=== PATIENT | male | born 1940 | race Caucasian/White ===

== ENCOUNTER 2017-08-05 09:04 | Inpatient (IN) | payer MEDICARE, BC, SELFPAY ==
[2017-08-05] VITALS (10 sets, daily range): BP systolic 120–146; BP diastolic 70–86; PULSE 96–121; RESP 15–36; TEMP 36.4–37.1; O2SAT 93–97; BMI 27.8; BMI 27.0; BMI 27.1
--- NOTE | 2017-08-05 09:19 | EKG12_ITS ---
Test Reason : WOUND Blood Pressure : / mmHG Vent. Rate : 099 BPM Atrial Rate : 099 BPM P-R Int : 144 ms QRS Dur : 084 ms QT Int : 382 ms P-R-T Axes : 018 022 079 degrees QTc Int : 490 ms Sinus rhythm with Premature atrial complexes Nonspecific ST and T wave abnormality Abnormal ECG Confirmed by TRENT CANAS ([id number]), purchase request editor LV MORELAND ([id number]) on 08/15/2017 6:18:43 PM Referred By: KHADIJAH Confirmed By:TRENT CANAS
--- NOTE | 2017-08-05 09:19 | RAD_ITS ---
STUDY: X-RAY CHEST REASON FOR EXAM: Male, 77 years old. Swelling and redness of both lower extremities. TECHNIQUE: Single AP portable view of the chest. COMPARISON: Comparison is made with prior study dated February 18, 2014. FINDINGS: Limited inspiratory effort. Small right pleural effusion with underlying infiltration and/or atelectasis. Mild degree of increased markings at the left lung base suggestive of left basilar atelectasis. Follow-up is recommended. Normal size heart. Normal mediastinum and radha. Normal visualized pulmonary arteries. There is atherosclerotic calcification of the aortic arch with tortuosity. There are diffuse degenerative changes of the visualized thoracic spine. The vertebrae have a dense appearance. Metastatic disease should be ruled out. There is degenerative osteoarthritis of the bilateral shoulders. There is no demonstrated abnormality of the visualized soft tissue structures of the upper abdomen. RAD/Chest 1 View (Portable) IMPRESSION: Increased markings at both lung bases worse on the right side with a small right pleural effusion. Electronically Signed: Juan Koroma MD at 10:00 EDT Tel [phone], Service support ,
[2017-08-05 09:57] LABS: Absolute Lymphocyte Count 0.69 X10^3/ul (0.83-4.51); Absolute Neutrophil Count 4.5 X10^3/uL (2.0-7.7); Basophil# 0.01 X10^3/uL; Basophil% 0.2 % (0-1); Eosinophil# 0.01 X10^3/uL; Eosinophils% 0.2 % (0-5); Hematocrit 32.9 % (40-54); Hemoglobin 10.1 g/dl (13.0-16.5); Lymphocyte # 0.69 X10^3/ul (4.0); Lymphocyte % 12.3 % (19-41); Mean Corp Hgb Conc 30.7 g/gl (32-36); Mean Corpuscular Hgb 27.7 pg (27.0-32.0); Mean Corpuscular Volume 90.4 fL (80-94); Mean Platelet Vol. 8.5 fl (6.2-12.0); Monocyte# 0.38 X10^3/uL; Monocyte% 6.7 % (0-10); Neutrophil # 4.54 X10^3/uL (2.7-7.7); Neutrophil % 80.6 % (47-70); Platelet Count 270 K/mm3 (150-450); RBC Distribution Width CV 17.9 % (11.6-14.6); RBC Distribution Width SD 60.4 fl (35.1-43.9); Red Blood Count 3.64 M/mm3 (4.6-6.2); White Blood Count 5.6 K/mm3 (4.4-11.0)
[2017-08-05 10:01] LABS: POSITIVE COUNT NO; POSITIVE DIFFERENTIAL NO; POSITIVE MORPHOLOGY NO
[2017-08-05 10:17] LABS: ALB/GLOB Ratio 0.8 RATIO (0.9-2.4); AST(SGOT) 56 U/L (15-37); Alanine Aminotransfer ALT/SGPT 9 U/L (16-61); Albumin, Serum 2.9 g/dL (3.2-5.0); Alkaline Phosphatase 639 U/L (45-117); Anion Gap 10 (5-15); BUN 10 mg/dL (7-18); BUN/Creat Ratio 13.9 RATIO (10-20); Calcium,Total 8.5 mg/dL (8.5-10.1); Chloride 105 mmol/L (98-107); Creatinine, Serum 0.72 mg/dL (0.70-1.30); EST Glomerular Filtration Rate 113 mL/min (>60); Est Glom Filt Rate - Afr Amer 136 mL/min (>60); Globulin 3.8 g/dL (2.2-4.2); Glucose 79 mg/dL (74-106); Potassium 3.9 mmol/L (3.5-5.1); Protein, Total 6.7 g/dL (6.4-8.2); Sodium Level 137 mmol/L (136-145)
[2017-08-05 10:18] LABS: Lactic Acid 1.4 mmol/L (0.4-2.0)
[2017-08-05 10:25] LABS: BNP,B-Type NATRIURETIC PEPTIDE 432.2 pg/mL (0-100)
--- NOTE | 2017-08-05 10:38 | ED.VISSUMM ---
- ER Visit Summary Date of Service: 08/05/17 Chief Complaint: [Swelling in the legs] History of Present Illness: The patient is a 77 M [presents to the emergency department with complaint of swelling in both legs that he has had for over 6 months. Patient has not seen a primary care physician in some time as his last primary care physician retired. Patient has a history of coronary artery disease with prior history of prostate cancer. Patient noticed seeping from his legs and is been going on for several months. Patient denies any chest pain. He denies significant dyspnea. He denies any fevers. Patient denies recent travel or surgery.] Physical Examination: [HEENT-PERRLA, EOMI. Cranial nerves II through XII grossly intact. TMs clear. Mucous membranes moist. No adenopathy. Cardiovascular-regular rate and rhythm with a little [id number] because 2 out of 6 ejection murmur and occasional ectopy. Lungs-diminished breath sounds in bases with rales noted a third of the way up lung bilaterally. No accessory muscle use or retractions. Abdomen-normoactive bowel sounds, soft, nontender, no rebound or rigidity, no peritoneal signs. Extremities-intact ?4, normal range of motion, normal pulses, atraumatic]. Patient has +3 edema both lower extremities from below the knee to the feet. Patient has weeping of serous fluid from both lower extremities. Test Results: [EKG obtained on arrival showed a sinus rhythm with ventricular rate of 99 bpm with PACs and nonspecific ST changes. CBC with differential showed white count of 5.6, hemoglobin 10, hematocrit 33, platelets 270. Chemistries unremarkable. Troponin was less than 0.015. BNP was 432. Chest x-ray obtained showed small right pleural effusion with increased markings as well as dense appearing vertebrae and metastases should be ruled out.] Emergency Department Course and Treatment: [Patient received Lasix 40 mg IV] Treatment Plan: [Admit] Disposition: [Admit CHF] Impression: [CHF-new onset Leg edema Right pleural effusion] This note was generated with [employer] dictation software. It may contain incorrect words, spelling, and punctuation that were not noted in review of the chart prior to signing ED Disposition - Plan for ED Patient: Chief Complaint: Wound Referrals: Care Physician,No Primary [Primary Care Provider] -
--- NOTE | 2017-08-05 10:42 | ED.DCSUM_ITS ---
- ER Visit Summary Date of Service: 08/05/17 Chief Complaint: [Swelling in the legs] History of Present Illness: The patient is a 77 M [presents to the emergency department with complaint of swelling in both legs that he has had for over 6 months. Patient has not seen a primary care physician in some time as his last primary care physician retired. Patient has a history of coronary artery disease with prior history of prostate cancer. Patient noticed seeping from his legs and is been going on for several months. Patient denies any chest pain. He denies significant dyspnea. He denies any fevers. Patient denies recent travel or surgery.] Physical Examination: [HEENT-PERRLA, EOMI. Cranial nerves II through XII grossly intact. TMs clear. Mucous membranes moist. No adenopathy. Cardiovascular-regular rate and rhythm with a little [id number] because 2 out of 6 ejection murmur and occasional ectopy. Lungs-diminished breath sounds in bases with rales noted a third of the way up lung bilaterally. No accessory muscle use or retractions. Abdomen-normoactive bowel sounds, soft, nontender, no rebound or rigidity, no peritoneal signs. Extremities-intact ?4, normal range of motion, normal pulses, atraumatic]. Patient has +3 edema both lower extremities from below the knee to the feet. Patient has weeping of serous fluid from both lower extremities. Test Results: [EKG obtained on arrival showed a sinus rhythm with ventricular rate of 99 bpm with PACs and nonspecific ST changes. CBC with differential showed white count of 5.6, hemoglobin 10, hematocrit 33, platelets 270. Chemistries unremarkable. Troponin was less than 0.015. BNP was 432. Chest x- ray obtained showed small right pleural effusion with increased markings as well as dense appearing vertebrae and metastases should be ruled out.] Emergency Department Course and Treatment: [Patient received Lasix 40 mg IV] Treatment Plan: [Admit] Disposition: [Admit CHF] Impression: [CHF-new onset Leg edema Right pleural effusion] This note was generated with [employer] dictation software. It may contain incorrect words, spelling, and punctuation that were not noted in review of the chart prior to signing ED Disposition - Plan for ED Patient: Chief Complaint: Wound Referrals: Care Physician,No Primary [Primary Care Provider] -
--- NOTE | 2017-08-05 10:44 | ED.RN ---
PHARMACY CONTACTED FOR LASIX
[2017-08-05 10:45] LABS: Bacteria 0 SEEN /hpf (None Seen)
[2017-08-05 10:49] LABS: Color, Urine Yellow (Yellow); Glucose, Dipstick Normal (Normal); Leukocyte Esterase-Dipstick Negative /ul (Negative); Nitrite-Dipstick Negative (Negative); Occult Blood-Urine Negative /ul (Negative); Protein-Dipstick 15 mg/dl (Negative); Urine Bilirubin Dipstick Negative (Negative); Urine Clarity Clear (Clear); Urine Urobilinogen 4 mg/dl (Normal); Urine pH 6.5 (5.0 - 8.0)
[2017-08-05] MEDS: Furosemide 40 MG/4 ML Vial IV ×2 (10:51→17:18)
[2017-08-05 10:58] LABS: Ketone-Dipstick 150 mg/dl (Negative)
[2017-08-05 10:59] LABS: Mucous, Urine RARE /hpf (<or=2+); Squamous Epithelial Cells - UA 0-5 SEEN /hpf (0-5)
[2017-08-05 11:04] LABS: Red Blood Cells-Urine 0-5 SEEN /hpf (0-5); White Blood Cells 0-5 SEEN /hpf (0-5)
[2017-08-05 11:05] LABS: Hyaline Cast 0-5 SEEN /lpf (0-5)
--- NOTE | 2017-08-05 11:08 | DT_ITS ---
This patient was seen during an EMR downtime August 08, 2017 - August 15, 2017. This patient may have a combination of paper and electronic documentation or all paper documentation. All documentation is viewable within the e-chart portion of [facility] for each patient visit.
--- NOTE | 2017-08-05 11:09 | NURSING ---
DR CLIFFORD CARRINGTON
--- NOTE | 2017-08-05 11:10 | ECHOD_ITS ---
Reason For Study: CHF Procedure This was a 2D Doppler, Color Flow transthoracic echocardiogram. Exam performed portable in patient room. Left Ventricle Normal size and thickness. The estimated ejection fraction is 25 %. Stage 1 diastolic dysfunction. There is severe global hypokinesis of the left ventricle. Right Ventricle Mildly dilated right ventricle. Normal systolic function. Atria Normal left atrium. Normal right atrium. Normal atrial septum. Mitral Valve The mitral valve is structurally normal. No prolapse or stenosis seen. Trivial mitral valve insufficiency. Tricuspid Valve Normal tricuspid valve. Trivial tricuspid valve insufficiency. Right ventricular systolic pressure estimated to be 37 mmHg. Mild pulmonary hypertension. Aortic Valve Trisinus/trileaflet aortic valve. Mild diffuse aortic valve thickening. Trivial aortic valve insufficiency. Pulmonic Valve Normal pulmonic valve. Great Vessels Normal aortic root. Mild atherosclerosis of the aortic arch. Normal inferior vena cava. Inferior vena cava collapse with sniff. Pericardium/Pleural No pericardial effusion. MMode/2D Measurements & Calculations LVIDd: 4.6 cm IVSd: 1.1 cm Ao root diam: 3.8 cm LVIDs: 3.9 cm LVPWd: 1.1 cm LA dimension: 4.1 cm RVDd: 3.9 cm FS: 15.7 % LAV(MOD-bp): 63.1 ml LVAd ap4: 47.2 cm2 SV(MOD-sp4): 68.3 ml LAV(MOD-bp) Indexed: 29.3 ml/m2 EDV(MOD-sp4): 186.6 ml LAV(MOD-sp2): 55.8 ml EDV(sp4-el): 197.0 ml LAV(MOD-sp4): 55.0 ml LVAs ap4: 34.3 cm2 ESV(MOD-sp4): 118.4 ml ESV(sp4-el): 115.6 ml EF(MOD-sp4): 36.6 % EF(sp4-el): 41.3 % SV(sp4-el): 81.4 ml LA A4 area: 20.3 cm2 RA A4 area: 17.7 cm2 Doppler Measurements & Calculations MV E max edilson: 64.2 cm/sec Lat Peak E' Edilson: 8.1 cm/sec Med Peak E' Edilson: 3.3 cm/sec E/E' lat: 8.0 E/E' med: 19.5 Ao V2 max: 125.0 cm/sec AI max edilson: 323.4 cm/sec LV V1 max: 86.1 cm/sec Ao max P.3 mmHg AI max P.8 mmHg LV V1 max P.0 mmHg AI dec slope: 218.2 cm/sec2 AI P1/2t: 434.1 msec PA V2 max: 85.5 cm/sec TR max edilson: 283.0 cm/sec TR max P.0 mmHg Interpretation Summary The estimated ejection fraction is 25 %. Stage 1 diastolic dysfunction. There is severe global hypokinesis of the left ventricle. Mildly dilated right ventricle. Trivial mitral valve insufficiency. Trivial tricuspid valve insufficiency. Right ventricular systolic pressure estimated to be 37 mmHg. Mild pulmonary hypertension. Trivial aortic valve insufficiency. There is no comparison study available. Ordering Physician: Unique Rosales Performed By: Kendra Pérez, RODERICK, RVT
--- NOTE | 2017-08-05 11:14 | NURSING ---
126 ACUTE EXAC OF CHF CHARISSA/CLIFFORD
[2017-08-05 11:53] LABS: Thyroid Stim Hormone (TSH) 1.08 uIU/mL (0.358-3.74)
--- NOTE | 2017-08-05 13:03 | HP.PCM_ITS ---
Problem List (1) Benign essential hypertension Status: Chronic (2) History of allergy Status: Chronic History of Present Illness Date of Admission: 08/05/17 Chief Complaint: Bilateral leg edema The patient is a 77 year old M with past medical history of coronary artery disease status post myocardial infarction in 2013,history of cancer status post radiation therapy who presented to the emergency room due to leg edema for about 6 months with right more than left. He has also now noted seepage from the legs. He reports no dyspnea, chest pain, fever chills or cough. Chest x- ray done in the emergency room did show increased markings at both lung bases worse on the right side with a small right pleural effusion. His BNP is mildly elevated at 432. Past Medical History Past Medical History (Chronic Problems): Chronic Problems History of allergy (Chronic) Benign essential hypertension (Chronic) Allergies No Known Allergies Allergy (Verified 08/05/17 09:07) Home Medications: Ambulatory Orders Medication Instructions Recorded Ticagrelor [Brilinta] 90 mg PO BID 08/05/17 Smoking Status: Never smoker VTE Information - Inpt Only VTE Present on Admission: No VTE Mechan Device Prophylaxis: None VTE Pharm Prophylaxis ordered?: Yes - Physical Exam General: Alert, Oriented x3 Oral: Moist Mucosa Neck: No JVD Lungs: Rales Cardiovascular: Regular rate, Normal S1, Normal S2 Abdomen: Bowel Sounds Present, Soft, Non Tender, Non-Distended Extremities: Edema Skin: Excoriated Neurological: Cranial nerves II-XII grossly intact, Motor Exam 5/5 strength throughout Psych/Mental Status: Normal Affect Vital Signs Temp Pulse Resp BP Pulse Ox 98.0 F 96 16 138/82 H 96 08/05/17 11:40 08/05/17 11:40 08/05/17 11:40 08/05/17 11:40 08/05/17 11:40 Oxygen Delivery Method Room Air Weight: 93 kg Body Mass Index (BMI) 27.0 Laboratory Tests Past 24 Hrs 08/05/17 12:30 Troponin I Pending Assessment/Plan 1. Acute congestive heart failure; the patient has been started on Lasix and we will obtain an echocardiogram to evaluate his left ventricular function. Fluid restriction, daily weights and fluid input and output will be monitored. 2. Peripheral edema with right more than left; likely due to #1 but we will obtain Doppler ultrasound to rule out DVT. 3. Coronary artery disease status post myocardial infarction in 2013, the patient is not currently on any cardioprotective medications other than Brilinta. We will place him on beta-blockers, MAO inhibitor, aspirin and statin. 4. DVT prophylaxis with Lovenox. Code Visit Inpatient E&M: 25579 Init Hosp L2
[2017-08-05] MEDS: TICAGRELOR 90 MG TABLET PO (21:07)
[2017-08-06] VITALS (11 sets, daily range): BP systolic 99–135; BP diastolic 54–72; PULSE 89–107; RESP 16–32; TEMP 36.8–37; O2SAT 92–94
[2017-08-06 06:31] LABS: Hematocrit 29.4 % (40-54); Hemoglobin 9.1 g/dl (13.0-16.5); Mean Corpuscular Hgb 27.7 pg (27.0-32.0); Mean Corpuscular Volume 89.4 fL (80-94); Mean Platelet Vol. 8.2 fl (6.2-12.0); Platelet Count 259 K/mm3 (150-450); RBC Distribution Width CV 17.6 % (11.6-14.6); RBC Distribution Width SD 58.2 fl (35.1-43.9); Red Blood Count 3.29 M/mm3 (4.6-6.2); White Blood Count 5.2 K/mm3 (4.4-11.0)
[2017-08-06 06:32] LABS: Scan Indicated on CBC? Y/N NO
[2017-08-06 06:45] LABS: BUN 11 mg/dL (7-18); Creatinine, Serum 0.65 mg/dL (0.70-1.30); EST Glomerular Filtration Rate 127 mL/min (>60); Estimated Creatinine Clearance 69.91 ml/min; Glucose 86 mg/dL (74-106)
[2017-08-06 06:46] LABS: Anion Gap 11 (5-15); Calcium,Total 8.1 mg/dL (8.5-10.1); Chloride 102 mmol/L (98-107); Est Glom Filt Rate - Afr Amer 154 mL/min (>60); Sodium Level 138 mmol/L (136-145)
[2017-08-06] MEDS: Furosemide 40 MG/4 ML Vial IV ×2 (08:55→17:12)
[2017-08-06] MEDS: Aspirin 81 MG TAB.CHEW PO (08:55)
[2017-08-06] MEDS: TICAGRELOR 90 MG TABLET PO ×2 (08:55→21:00)
[2017-08-06] MEDS: Enoxaparin 40 MG/0.4 ML Syringe SC (08:56)
[2017-08-06] MEDS: Carvedilol 3.125 MG TABLET PO ×2 (09:01→21:00)
--- NOTE | 2017-08-06 12:38 | CASEMGMT ---
Face to Face with patient for initial transition planning/care coordination assessment. MABLE CONSTANTINO introduced self and role at [facility], pt voices understanding and consents to assessment at this time. Pt is sitting up in bed in no distress at this time. Pt is A/O x4 at this time and answers all questions appropriately at this time. Care providers, pharmacy, and demographics verified. See attached link. Pt voices no further concerns/needs at this time. Advised pt to ask for CM if any further questions/concerns/needs arise, voices understanding. Pt was provided with local PCP list at this time, voices understanding. PLAN: [place] MABLE CONSTANTINO
--- NOTE | 2017-08-06 13:02 | PCM.PN.HOSP ---
Subjective: CC: Peripheral edema, shortness of breath. Objective: He denies any shortness of breath at rest, any chest pain or palpitations, leg edema is improving with IV Lasix. Vitals/I&O's: Vital Signs Temp Pulse Resp BP Pulse Ox 98.6 F 91 20 H 117/54 L 94 08/06/17 09:00 08/06/17 10:59 08/06/17 09:00 08/06/17 09:00 08/06/17 09:00 Oxygen Delivery Method Room Air Weight: 89.2 kg Body Mass Index (BMI) 27.0 Intake and Output for Last 24 Hours 08/04/17 08/05/17 08/06/17 23:59 23:59 23:59 Intake Total 240 / 240 235 / 235 Output Total 2425 / 2425 475 / 475 Balance -2185 / -2185 -240 / -240 General: Alert, Oriented x3 Oral: Moist Mucosa Neck: Supple, No JVD Lungs: No rales Cardiovascular: Regular rate, Normal S1, Normal S2 Abdomen: Bowel Sounds Present, Soft, Non Tender Extremities: Edema Neurological: Neuro grossly intact Laboratory Results 08/05/17 12:30: Troponin I < 0.015 08/05/17 15:58: Troponin I < 0.015 08/06/17 06:10: WBC 5.2, RBC 3.29 L, Hgb 9.1 L, Hct 29.4 L, MCV 89.4, MCH 27.7, MCHC 31.0 L, RDW 17.6 H, RDW Differential 58.2 H, Plt Count 259, MPV 8.2 08/06/17 06:10: Sodium 138, Potassium 3.0 L, Chloride 102, Carbon Dioxide 25.0, Anion Gap 11, BUN 11, Creatinine 0.65 L, Estim Creat Clear Calc 69.91, Est GFR (MDRD) Af Amer 154, Est GFR (MDRD) Non-Af 127, BUN/Creatinine Ratio 17.0, Glucose 86, Calcium 8.1 L Current Medications Aspirin (Aspirin, Baby) 81 mg PO DAILY@0800 [facility] Last Admin: 08/06/17 08:55 Dose: 81 mg Carvedilol (Coreg) 3.125 mg PO BID [facility] Last Admin: 08/06/17 09:01 Dose: 3.125 mg Enoxaparin Sodium (Lovenox) 40 mg SC DAILY@1000 [facility] Last Admin: 08/06/17 08:56 Dose: 40 mg Furosemide (Lasix) 40 mg IV BIDLX [facility] Last Admin: 08/06/17 08:55 Dose: 40 mg Magnesium Hydroxide (Milk Of Magnesia) 30 ml PO DAILY PRN PRN Reason: Constipation Potassium Chloride (K-Dur) 20 meq PO DAILYCM [facility] Last Admin: 08/06/17 09:00 Dose: 20 meq Sodium Chloride () 5 - 30 ml IV UD PRN PRN Reason: SALINE FLUSH Ticagrelor (Brilinta) 90 mg PO BID [facility] Last Admin: 08/06/17 08:55 Dose: 90 mg Medical Necessity - Tobacco Use Smoking Status: Never smoker Assessment/Plan 1. Acute systolic congestive heart failure; echo showed an EF of about 25%, will continue on IV Lasix. 2. Coronary artery disease status post myocardial infarction in 2013, status post angioplasty with stenting, given his cardiomyopathy will consult cardiology for possible left heart catheterization. we will place him on Coreg, aspirin, lisinopril and a statin. 3. Hypokalemia due to diuretic therapy; we will maintain him on oral potassium chloride. 4. Anemia, Normocytic; will obtain iron parameters as well as stool guaiac 5. DVT prophylaxis with Lovenox. Code Visit Inpatient E&M: 09608 [facility] Hosp L2
[2017-08-06 13:46] LABS: Ferritin 1091 ng/mL (26-388); Iron 17 ug/dL (65-175); Iron Binding Capacity,Total 150 ug/dL (250-450)
[2017-08-06] MEDS: Atorvastatin Calcium 40 MG Tablet PO (21:00)
[2017-08-07] VITALS (11 sets, daily range): BP systolic 103–127; BP diastolic 54–73; PULSE 80–95; RESP 16–20; TEMP 36.8–37.2; O2SAT 93–95
[2017-08-07 06:01] LABS: Hematocrit 28.9 % (40-54); Hemoglobin 8.8 g/dl (13.0-16.5); Mean Corp Hgb Conc 30.4 g/gl (32-36); Mean Corpuscular Hgb 28.2 pg (27.0-32.0); Mean Corpuscular Volume 92.6 fL (80-94); Mean Platelet Vol. 8.5 fl (6.2-12.0); Platelet Count 324 K/mm3 (150-450); RBC Distribution Width CV 17.5 % (11.6-14.6); RBC Distribution Width SD 56.9 fl (35.1-43.9); Red Blood Count 3.12 M/mm3 (4.6-6.2)
[2017-08-07 06:03] LABS: Scan Indicated on CBC? Y/N NO
[2017-08-07 06:21] LABS: Anion Gap 9 (5-15); BUN 14 mg/dL (7-18); BUN/Creat Ratio 18.5 RATIO (10-20); Chloride 105 mmol/L (98-107); Creatinine, Serum 0.76 mg/dL (0.70-1.30); EST Glomerular Filtration Rate 106 mL/min (>60); Est Glom Filt Rate - Afr Amer 129 mL/min (>60); Estimated Creatinine Clearance 69.91 ml/min; Glucose 90 mg/dL (74-106); Potassium 3.1 mmol/L (3.5-5.1); Sodium Level 140 mmol/L (136-145)
[2017-08-07] MEDS: Aspirin 81 MG TAB.CHEW PO (08:10)
[2017-08-07] MEDS: TICAGRELOR 90 MG TABLET PO ×2 (09:11→21:46)
[2017-08-07] MEDS: Carvedilol 3.125 MG TABLET PO ×2 (09:11→21:47)
[2017-08-07] MEDS: Furosemide 40 MG/4 ML Vial IV ×2 (09:13→17:59)
[2017-08-07] MEDS: 0.9% NaCl Peripheral Flush Adult/Peds IV ×2 (09:13→17:59)
[2017-08-07] MEDS: Enoxaparin 40 MG/0.4 ML Syringe SC (09:13)
--- NOTE | 2017-08-07 09:36 | PCM.CONS.C ---
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 Patient's history is somewhat cloudy as he does not recall why he was admitted to the first place. Apparently the patient complained of worsening lower extremity edema for the past 6 months, was found to have weeping edema in bilateral lower extremities. A 2D echo with Doppler showed severe LV dysfunction with an EF of 25% combined with mild pulmonary hypertension. Patient was treated with IV diuretic therapy, as well as gauze bandages to his legs. He reports that he has also had orthopnea but this has improved. He is a lifelong non-smoker, very little alcohol, nondiabetic, no previous CVA. He has no previous known history of congestive heart failure. The patient had not followed up with a transmission maintenance supervisor and has not seen his PCP in some time. EKG showed normal sinus rhythm with PACs and nonspecific ST and T-wave changes. No previous myocardial infarction noted. Patient reports that he did not have a myocardial infarction at the time of his stent implantation 4-5 years ago. Patient is on chronic baby aspirin and Brilinta therapy [] Past Medical History Allergies/Adverse Reactions: Allergies No Known Allergies Allergy (Verified 08/05/17 09:07) Home Medications: Ambulatory Orders Medication Instructions Recorded Ticagrelor [Brilinta] 90 mg PO BID 08/05/17 Past Medical History (Chronic Problems): Chronic Problems History of allergy (Chronic) Benign essential hypertension (Chronic) Smoking Status: Never smoker Review of Systems - Review of Systems General: Denies: Fever, Night Sweats, Fatigue Cardiovascular: Reports: Shortness of Breath at Rest, Orthopnea, Peripheral Edema. Denies: Chest Discomfort, Shortness of Breath, PND, Palpitations, Lightheadedness, Dizziness, Near Syncope, Syncope Respiratory: Denies: Cough, Sputum Production, Hemoptysis Gastrointestinal: Denies: Hematemesis, Hematochezia, Melena Genitourinary: Denies: Dysuria, Hematuria Skin: Denies: Rash Subjectve: Patient sitting up in bed, no acute distress. Objective: Vital Signs Temp Pulse Resp BP Pulse Ox 98.8 F 94 20 H 109/63 94 08/07/17 08:15 08/07/17 08:15 08/07/17 08:15 08/07/17 08:15 08/07/17 08:15 Oxygen Delivery Method Room Air Weight: 195 lb 12.328 oz Body Mass Index (BMI) 27.0 Intake and Output for Last 24 Hours 08/05/17 08/06/17 08/07/17 23:59 23:59 23:59 Intake Total 240 / 240 670 / 670 120 / 120 Output Total 2425 / 2425 475 / 475 Balance -2185 / -2185 195 / 195 120 / 120 General: Awake, Alert, Oriented x 3 HEENT: PERRL, EOMI, Sclera Non Icteric Neck: Supple, Good ROM, No Lymph Node Enlargement Lungs: Clear to auscultation Cardiovascular: Regular Rhythm, Normal S1, Normal S2, No Murmurs, No Rubs, No Gallops Extremities: Bilateral Edema +2 08/06/17 06:10: Iron 17 L, TIBC 150 L, Ferritin 1091 H 08/07/17 05:28: WBC 5.0, RBC 3.12 L, Hgb 8.8 L, Hct 28.9 L, MCV 92.6, MCH 28.2, MCHC 30.4 L, RDW 17.5 H, RDW Differential 56.9 H, Plt Count 324, MPV 8.5 08/07/17 05:28: Sodium 140, Potassium 3.1 L, Chloride 105, Carbon Dioxide 26.0, Anion Gap 9, BUN 14, Creatinine 0.76, Est GFR (MDRD) Af Amer 129, Est GFR (MDRD) Non-Af 106, BUN/Creatinine Ratio 18.5, Glucose 90, Calcium 8.0 L Rhythm: EKG: ECHO: As above Stress Test: Cardiac Cath: Pending PCI: CT Surgery: Holter monitor: EPS: PPM: CXR: Chest CT Scan: Assessment/Plan 1. Newly discovered LV dysfunction: The patient has a history of coronary artery disease status post angioplasty and stenting at [facility] approximately 4 or 5 years ago although I do not have any of the details of that event. Patient did not follow-up with a transmission maintenance supervisor and I have no old records regarding his catheterization or his previously known LV function. He is ruled out for myocardial infarction with troponins negative ?2. Patient presents with progressively worsening lower extremity edema, shortness of breath, and orthopnea. His echocardiogram shows severe LV dysfunction with an EF of 25% with at least mild pulmonary hypertension. Given the patient's constellation of symptoms and previously known coronary disease per the patient, I recommended he undergo a repeat left heart catheterization as well as a right heart catheterization to estimate his right heart pressures. Patient is already on chronic baby aspirin and Brilinta, so does not require any additional therapy. The risks/benefits of the procedure were thoroughly explained to the patient including specific attention to lack of on-site surgical backup, and the patient is agreed to proceed. 2. Cardiomyopathy: Patient rarely drinks, and is a lifelong non-smoker. However, it appears he has had poor medical follow-up and his LV dysfunction may be a result of either burned-out hypertension or a viral cardiomyopathy. To be sure we will repeat his left her catheterization tomorrow to evaluate his coronary anatomy. In addition he will continue Coreg therapy at low dose, and would recommend adding Cozaar 25 mg p.o. daily. Recommend continuing IV diuretic therapy until his legs have iced. 3. Hyperlipidemia: Recommend obtaining a fasting lipid profile. Recommend treating him with statin based medications for an LDL greater than 70. 4. Anemia: The patient has baseline anemia which apparently is iron deficient as well as possibly malnutrition. Will check INR, as well as recommend keeping his hemoglobin greater than 8.0. 5. Thank you very much for the opportunity to participate in the cardiac care of your patient. Consultation time took place between 835 and 9:15 AM. Code Visit Inpatient E&M: 09387 Init Hosp L2
--- NOTE | 2017-08-07 09:49 | CON.PCM_ITS ---
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 Patient's history is somewhat cloudy as he does not recall why he was admitted to the first place. Apparently the patient complained of worsening lower extremity edema for the past 6 months, was found to have weeping edema in bilateral lower extremities. A 2D echo with Doppler showed severe LV dysfunction with an EF of 25% combined with mild pulmonary hypertension. Patient was treated with IV diuretic therapy, as well as gauze bandages to his legs. He reports that he has also had orthopnea but this has improved. He is a lifelong non-smoker, very little alcohol, nondiabetic, no previous CVA. He has no previous known history of congestive heart failure. The patient had not followed up with a press brake operator and has not seen his PCP in some time. EKG showed normal sinus rhythm with PACs and nonspecific ST and T-wave changes. No previous myocardial infarction noted. Patient reports that he did not have a myocardial infarction at the time of his stent implantation 4-5 years ago. Patient is on chronic baby aspirin and Brilinta therapy [] Past Medical History Allergies/Adverse Reactions: Allergies No Known Allergies Allergy (Verified 08/05/17 09:07) Home Medications: Ambulatory Orders Medication Instructions Recorded Ticagrelor [Brilinta] 90 mg PO BID 08/05/17 Past Medical History (Chronic Problems): Chronic Problems History of allergy (Chronic) Benign essential hypertension (Chronic) Smoking Status: Never smoker Review of Systems - Review of Systems General: Denies: Fever, Night Sweats, Fatigue Cardiovascular: Reports: Shortness of Breath at Rest, Orthopnea, Peripheral Edema. Denies: Chest Discomfort, Shortness of Breath, PND, Palpitations, Lightheadedness, Dizziness, Near Syncope, Syncope Respiratory: Denies: Cough, Sputum Production, Hemoptysis Gastrointestinal: Denies: Hematemesis, Hematochezia, Melena Genitourinary: Denies: Dysuria, Hematuria Skin: Denies: Rash Subjectve: Patient sitting up in bed, no acute distress. Objective: Vital Signs Temp Pulse Resp BP Pulse Ox 98.8 F 94 20 H 109/63 94 08/07/17 08:15 08/07/17 08:15 08/07/17 08:15 08/07/17 08:15 08/07/17 08:15 Oxygen Delivery Method Room Air Weight: 195 lb 12.328 oz Body Mass Index (BMI) 27.0 Intake and Output for Last 24 Hours 08/05/17 08/06/17 08/07/17 23:59 23:59 23:59 Intake Total 240 / 240 670 / 670 120 / 120 Output Total 2425 / 2425 475 / 475 Balance -2185 / -2185 195 / 195 120 / 120 General: Awake, Alert, Oriented x 3 HEENT: PERRL, EOMI, Sclera Non Icteric Neck: Supple, Good ROM, No Lymph Node Enlargement Lungs: Clear to auscultation Cardiovascular: Regular Rhythm, Normal S1, Normal S2, No Murmurs, No Rubs, No Gallops Extremities: Bilateral Edema +2 08/06/17 06:10: Iron 17 L, TIBC 150 L, Ferritin 1091 H 08/07/17 05:28: WBC 5.0, RBC 3.12 L, Hgb 8.8 L, Hct 28.9 L, MCV 92.6, MCH 28.2, MCHC 30.4 L, RDW 17.5 H, RDW Differential 56.9 H, Plt Count 324, MPV 8.5 08/07/17 05:28: Sodium 140, Potassium 3.1 L, Chloride 105, Carbon Dioxide 26.0, Anion Gap 9, BUN 14, Creatinine 0.76, Est GFR (MDRD) Af Amer 129, Est GFR (MDRD ) Non-Af 106, BUN/Creatinine Ratio 18.5, Glucose 90, Calcium 8.0 L Rhythm: EKG: ECHO: As above Stress Test: Cardiac Cath: Pending PCI: CT Surgery: Holter monitor: EPS: PPM: CXR: Chest CT Scan: Assessment/Plan 1. Newly discovered LV dysfunction: The patient has a history of coronary artery disease status post angioplasty and stenting at [facility] approximately 4 or 5 years ago although I do not have any of the details of that event. Patient did not follow-up with a press brake operator and I have no old records regarding his catheterization or his previously known LV function. He is ruled out for myocardial infarction with troponins negative ?2. Patient presents with progressively worsening lower extremity edema, shortness of breath, and orthopnea. His echocardiogram shows severe LV dysfunction with an EF of 25% with at least mild pulmonary hypertension. Given the patient's constellation of symptoms and previously known coronary disease per the patient, I recommended he undergo a repeat left heart catheterization as well as a right heart catheterization to estimate his right heart pressures. Patient is already on chronic baby aspirin and Brilinta, so does not require any additional therapy. The risks/benefits of the procedure were thoroughly explained to the patient including specific attention to lack of on-site surgical backup, and the patient is agreed to proceed. 2. Cardiomyopathy: Patient rarely drinks, and is a lifelong non-smoker. However, it appears he has had poor medical follow-up and his LV dysfunction may be a result of either burned-out hypertension or a viral cardiomyopathy. To be sure we will repeat his left her catheterization tomorrow to evaluate his coronary anatomy. In addition he will continue Coreg therapy at low dose, and would recommend adding Cozaar 25 mg p.o. daily. Recommend continuing IV diuretic therapy until his legs have iced. 3. Hyperlipidemia: Recommend obtaining a fasting lipid profile. Recommend treating him with statin based medications for an LDL greater than 70. 4. Anemia: The patient has baseline anemia which apparently is iron deficient as well as possibly malnutrition. Will check INR, as well as recommend keeping his hemoglobin greater than 8.0. 5. Thank you very much for the opportunity to participate in the cardiac care of your patient. Consultation time took place between 835 and 9:15 AM. Code Visit Inpatient E&M: 02676 Init Hosp L2
[2017-08-07 10:06] LABS: Cholesterol 158 mg/dL (200); High Density Lipoprotein 46 mg/dL; Triglycerides 85 mg/dL; Very Low Density Lipoprotein 17 mg/dL (5-40)
[2017-08-07 10:30] LABS: International Normalized Ratio 1.3; Prothrombin Time (Protime)PT. 16.2 SECONDS (11.7-14.9)
--- NOTE | 2017-08-07 14:32 | PCM.PN.HOSP ---
Patient Problems: Active and Suspected Problems Congestive heart failure (CHF) (Acute) Coronary artery disease (Acute) Subjective: CC: Leg edema and shortness of breath Objective: The patient reports less dyspnea today , his leg edema has improved with Lasix. He denies any chest pain, palpitations or rapid heartbeat. No acute events reported overnight. Vitals/I&O's: Vital Signs Temp Pulse Resp BP Pulse Ox 98.5 F 87 20 H 103/54 L 94 08/07/17 13:42 08/07/17 13:42 08/07/17 13:42 08/07/17 13:42 08/07/17 13:42 Oxygen Delivery Method Room Air Weight: 88.8 kg Body Mass Index (BMI) 27.0 Intake and Output for Last 24 Hours 08/05/17 08/06/17 08/07/17 23:59 23:59 23:59 Intake Total 240 / 240 670 / 670 360 / 360 Output Total 2425 / 2425 475 / 475 275 / 275 Balance -2185 / -2185 195 / 195 85 / 85 General: Alert, Oriented x3 HEENT: Atraumatic Oral: Moist Mucosa Neck: Supple Lungs: Clear to auscultation Cardiovascular: Regular rate, Normal S1, Normal S2 Abdomen: Bowel Sounds Present Extremities: No clubbing, Edema Laboratory Results 08/07/17 05:28: WBC 5.0, RBC 3.12 L, Hgb 8.8 L, Hct 28.9 L, MCV 92.6, MCH 28.2, MCHC 30.4 L, RDW 17.5 H, RDW Differential 56.9 H, Plt Count 324, MPV 8.5 08/07/17 05:28: Sodium 140, Potassium 3.1 L, Chloride 105, Carbon Dioxide 26.0, Anion Gap 9, BUN 14, Creatinine 0.76, Estim Creat Clear Calc 69.91, Est GFR (MDRD) Af Amer 129, Est GFR (MDRD) Non-Af 106, BUN/Creatinine Ratio 18.5, Glucose 90, Calcium 8.0 L 08/07/17 05:28: Triglycerides 85, Cholesterol 158, LDL Cholesterol 95, VLDL Cholesterol 17, HDL Cholesterol 46 08/07/17 10:15: PT 16.2 H, INR 1.3 Current Medications Aspirin (Aspirin, Baby) 81 mg PO DAILY@0800 SUSAN Last Admin: 08/07/17 08:10 Dose: 81 mg Atorvastatin Calcium (Lipitor) 40 mg PO QHS [facility] Last Admin: 08/06/17 21:00 Dose: 40 mg Carvedilol (Coreg) 3.125 mg PO BID [facility] Last Admin: 08/07/17 09:11 Dose: 3.125 mg Diphenhydramine HCl (Benadryl) 50 mg PO X1 ONE Stop: 08/08/17 06:01 Enoxaparin Sodium (Lovenox) 40 mg SC DAILY@1000 [facility] Last Admin: 08/07/17 09:13 Dose: 40 mg Furosemide (Lasix) 40 mg IV BIDLX [facility] Last Admin: 08/07/17 09:13 Dose: 40 mg Sodium Chloride () 1,000 mls @ 0 mls/hr IV .Q0M [facility] PRN Reason: KVO Magnesium Hydroxide (Milk Of Magnesia) 30 ml PO DAILY PRN PRN Reason: Constipation Potassium Chloride (K-Dur) 20 meq PO DAILYCM [facility] Last Admin: 08/07/17 08:10 Dose: 20 meq Sodium Chloride () 5 - 30 ml IV UD PRN PRN Reason: SALINE FLUSH Last Admin: 08/07/17 09:13 Dose: 10 ml Ticagrelor (Brilinta) 90 mg PO BID [facility] Last Admin: 08/07/17 09:11 Dose: 90 mg Medical Necessity - Tobacco Use Smoking Status: Never smoker Assessment/Plan All Active Problems Congestive heart failure (CHF) (Acute) Coronary artery disease (Acute) This is a 77-year-old male with history of coronary artery disease status post remote angioplasty and stenting, he does not follow-up with a fundraising manager, he presented to the emergency room due to leg edema and shortness of breath and he has been found to have acute systolic heart failure, he is improving with IV Lasix. His ejection fraction is 25% and cardiology has been consulted for left heart catheterization to rule out ischemia. 1. Acute systolic congestive heart failure; echo showed an EF of about 25%, will continue on IV Lasix. 2. Coronary artery disease status post myocardial infarction in 2013, status post angioplasty with stenting, cardiology consulted for left heart catheterization tomorrow. 3. Cardiomyopathy; the patient has been started on Coreg and Lisinopril. 4. Hypokalemia from diuretic therapy; we will maintain him on oral potassium chloride replacement. 5. Anemia of chronic disease; no evidence of blood loss, we will monitor hemoglobin and transfuse as needed. 6. Alkaline phosphatase elevation; check alkaline phosphatase isomers and go from there, would also obtain a PSA level. 7. History of prostatic CA status post radiation therapy; will check a PSA as above. 8. DVT prophylaxis with Lovenox. Code Visit Inpatient E&M: 19464 Subs Hosp L2
[2017-08-07] MEDS: Atorvastatin Calcium 40 MG Tablet PO (21:49)
[2017-08-08 02:56] VITALS: PULSE 84
[2017-08-08 03:45] VITALS: BP 110/70; PULSE 89; RESP 16; TEMP 36.6; O2SAT 92
--- NOTE | 2017-08-08 05:55 | EKG12_ITS ---
Test Reason : AM EKG Blood Pressure : / mmHG Vent. Rate : 089 BPM Atrial Rate : 089 BPM P-R Int : 136 ms QRS Dur : 086 ms QT Int : 402 ms P-R-T Axes : 006 031 069 degrees QTc Int : 489 ms Sinus rhythm with Premature atrial complexes Nonspecific T wave abnormality Prolonged QT Abnormal ECG Confirmed by JUAN BYRD, JAMES ([id number]), editor news LV MORELAND ([id number]) on 08/19/2017 2:14:21 PM Referred By: ANAIS Confirmed By:JAMES MARTINEZ MD
[2017-08-11 17:16] LABS: Hematocrit 29.6 % (40-54); Hemoglobin 9.1 g/dl (13.0-16.5); Mean Corp Hgb Conc 30.7 g/gl (32-36); Mean Corpuscular Hgb 28.5 pg (27.0-32.0); Mean Corpuscular Volume 92.8 fL (80-94); Mean Platelet Vol. 8.8 fl (6.2-12.0); Platelet Count 367 K/mm3 (150-450); RBC Distribution Width CV 17.5 % (11.6-14.6); RBC Distribution Width SD 56.9 fl (35.1-43.9); Red Blood Count 3.19 M/mm3 (4.6-6.2); Scan Indicated on CBC? Y/N NO; White Blood Count 5.7 K/mm3 (4.4-11.0)
[2017-08-11 17:50] LABS: International Normalized Ratio 1.3; Prothrombin Time (Protime)PT. 16.4 SECONDS (11.7-14.9)
--- NOTE | 2017-08-12 16:57 | CL.D_ITS ---
Patient Name: STEPHANIE BUSTAMANTE Study Date: 08/08/2017 Performing: Dex Yousif MD Ht: 73 inches 185.42 cm : 1940 Wt: 210 lbs 95.254 kg Age: 77 Gender: male BSA: 2.2 PROCEDURE(S) PERFORMED GA43-BZD/LHC/COR/LV [id number] RENAL ANGIO WITH HEART CATH CLINICAL PROFILE AND INDICATIONS Indications: ACS <= 24 hrs, Other, Other, New Onset Angina <= 2 months, Stable Known CAD, Suspect ed CAD, Cardiomyopathy, LV Dysfunction Heart Failure: NYHA Class: 3, Newly Diagnosed: No, Heart Failure Type: Systolic Stress/Imaging Stress/Image Study Performed: No CAD Presentations: Other: dyspnea on exertion, lower extremity edema Comorbidities/Risk Factors: Hypertension Dyslipidemia Prior CHF Prior PCI Peripheral Arterial Disease CONCLUSIONS Single vessel CAD of the Occluded LAD with left to left and right to left collaterals. Non obstructive coronary arteries Cardiomyopathy: Congestive Right heart pressures - Normal RECOMMENDATIONS Stress test to establish perfusion/viability of LAD territory as well as inferior ischemia. IF LAD a nd inferior areas have ischemia will recommend CABG. Continue asa/plavix for PVD and CAD for now. DESCRIPTION OF PROCEDURE The patient arrived to the procedure lab. The risks and benefits of the procedure as well as a full d escription of our services here and current unavailability of surgical backup were fully explained to the patient and/or their significant other prior to the catheterization. The Timeout was completed, verifying the correct patient and procedure. The patient's procedural site was prepped and draped in the usual fashion. Local anesthetic was given subcutaneously to right groin region with Lidocaine 2%. Using a modified Seldinger technique, arterial access was obtained via the right femoral artery, a 4 Fr sheath was inserted Venous access was obtained via the right femoral vein, a 7Fr sheath was insert ed. A 7Fr thermal dilution catheter was inserted and right heart pressures were recorded, it was then advanced to PA position for cardiac outputs. Thermal dilution cardiac outputs were then recorded. O2 saturations were then obtained. The Thermal dilution catheter was then removed. Left Ventriculograph y was performed in VALDIVIA projection using a 4 Fr. Pigtail catheter. LV to AO pullback pressures were th en recorded. Simultaneous pressures were then recorded. Left Coronary Artery selective angiography wa s performed in multiple views using a 4 Fr. JL5 catheter. Right Coronary Artery selective angiography was then performed in multiple views using a 4 Fr. 3DRC catheter.Peripheral Findings: Abdominal Aort a: small to moderate sized descending aortic aneurysm, wth significant aorto iliac tortuosity. Would not recommend IABP.The arterial sheath was pulled and manual compression applied until hemostasis is achieved.. The venous sheath was then pulled and manual compression applied until hemostasis achieve d CORONARY ANGIOGRAPHY DOMINANCE: Right Dominant LEFT HEART ASSESSMENT Left Ventricular Ejection Fraction: by LV Gram 30 % Inferior Mid Hypokinesis - Severe. Anterior Hypokinesis - Moderate Depressed Left Ventricular systolic function Normal Left Ventricular End Diastolic Pressure RIGHT HEART ASSESSMENT Thermal CO: 6.88 Thermal CI: 3.13 Rich CO: 9.85 Rich CI: 4.48 PW: 20/02 10 PA: 326 17 RV: 35/0 3 RA: 06/07 1 PVR: 81 SVR: 1105 Right Heart pressures - normal LEFT MAIN: No significant disease noted LEFT ANTERIOR DECENDING ARTERY: MID LAD: is occluded, Severe calcification DIAGONAL 1: Proximal - No significant disease noted CIRCUMFLEX ARTERY: Mild luminal irregularities less than 30% RIGHT CORONARY ARTERY: PROX RCA: Mild luminal irregularities less than 40% tubular with ectasia upstream and downstream. DISTAL RCA: 60 at PDA bifurcation. % Stenosis RT PLV: Angiographically normal RT PDA: Proximal - Mild calcification, Proximal - Previously placed stent is patent COLLATERAL FLOW: Collateral flow from Left to Left Collateral flow from Right to Left PERIPHERAL FINDINGS: Abdominal Aorta: small to moderate sized descending aortic aneurysm, wth significant aorto iliac tort uosity. Would not recommend IABP. COMPLICATIONS No Complications PROCEDURE MEDICATIONS Oxygen: 2 L/min via nasal cannula Baby Aspirin (81mg) 81 Tabs PO @ 08/08/2017 11:36:25 Plavix 75 mg PO 08/08/2017 11:36:32 SUMMARY OF HEMODYNAMIC DATA Time AIR REST RA 06/07 (1) SV 11:41:30 RV 35/0, 3 11:41:48 PW 20/02 (10) PV 11:43:14 PA (17) PA 11:44:24 LV 142/-15, 9 11:49:35 LV 136/-15, 8 11:49:42 LV 144/-14, 10 11:50:12 PW 23/01 (11) 11:50:12 LV 144/-14, 9 11:50:17 PW 19/18 (14) 11:50:17 LV 143/-14, 10 11:50:53 RV 36/-2, 3 11:50:53 LV 133/-14, 13 11:52:06 LV 129/-9, 9 11:52:12 LVp 135/-11, 7 11:52:17 AOp 147/69 (100) 11:52:22 AO 113/80 (96) SA 11:54:41 Type SV CO (l/m) CI (l/m/ HR Time AIR REST Thermal 80.00 6.88 3.13 86 11:41:30 Rich 114.50 9.85 4.48 86 11:41:30 Label % O2 Pres/Loc Time AIR REST AO 91 PV 11:59:04 PA 67 PA 11:59:10 Signed By Dex Yousif MD On 08/17/2017 08:28:42 Dex Yousif MD
[2017-08-13 07:26] LABS: Potassium 3.3 mmol/L (3.5-5.1); Sodium Level 139 mmol/L (136-145)
[2017-08-14 20:06] LABS: Blood Gas Specimen Type VEN; VBG BASE EXCESS 0 mmol/L (-1.0-3.5); VBG Bicarbonate 24 mmol/L (22-26); VBG Oxygen Content 25 mmol/L (23-33); VBG PO2 33 mmHg (25-40); VBG SO2 67 % (50-70); VBG pCO2 33.8 mmHg (41-51); VBG pH 7.45 (7.32-7.42)
[2017-08-14 20:06] LABS: Base Excess 0 mmol/L (-2 to +2); Bicarbonate 23.7 mmol/L (22-26); Blood Gas Specimen Type ART; PO2 56 mmHG (75-100); SO2 91 % (95-99); Total Carbon Dioxide 25 mmol/L; pCO2 32.3 mmHg (35-45); pH 7.47 (7.35-7.45)
[2017-08-14 20:06] LABS: Blood Gas Specimen Type VEN; VBG BASE EXCESS 1 mmol/L (-1.0-3.5); VBG Bicarbonate 25 mmol/L (22-26); VBG Oxygen Content 26 mmol/L (23-33); VBG PO2 35 mmHg (25-40); VBG SO2 72 % (50-70); VBG pCO2 33.5 mmHg (41-51); VBG pH 7.48 (7.32-7.42)
[2017-08-17 15:01] LABS: BUN 16 mg/dL (7-18); Calcium,Total 8.2 mg/dL (8.5-10.1); Creatinine, Serum 0.84 mg/dL (0.70-1.30); EST Glomerular Filtration Rate 94 mL/min (>60); Est Glom Filt Rate - Afr Amer 114 mL/min (>60); Estimated Creatinine Clearance 83.23 ml/min; Glucose 92 mg/dL (74-106)
[2017-08-17 15:02] LABS: Anion Gap 11 (5-15); Chloride 103 mmol/L (98-107); Potassium 3.2 mmol/L (3.5-5.1); Sodium Level 141 mmol/L (136-145)
--- NOTE | 2017-08-19 09:42 | CL.I_ITS ---
Patient Name: STEPHANIE BUSTAMANTE Study Date: 08/08/2017 Performing: Dex Yousif MD Ht: 73 inches 185.42 cm : 1940 Wt: 210.3 lbs 95.254 kg Age: 77 Gender: male BSA: 2.2 PROCEDURE(S) PERFORMED KJ19-IAP/LHC/COR/LV [id number] RENAL ANGIO WITH HEART CATH CLINICAL PROFILE AND CO-MORBIDITIES Indications: ACS <= 24 hrs, Other, Other, New Onset Angina <= 2 months, Stable Known CAD, Suspect ed CAD, Cardiomyopathy, LV Dysfunction Heart Failure: NYHA Class: 3, Newly Diagnosed: No, Heart Failure Type: Systolic Stress/Imaging Stress/Image Study Performed: No CAD Presentations: Other: dyspnea on exertion, lower extremity edema Comorbidities/Risk Factors: Hypertension Dyslipidemia Prior CHF Prior PCI Peripheral Arterial Disease CONCLUSIONS Single vessel CAD of the Occluded LAD with left to left and right to left collaterals. Non obstructive coronary arteries Cardiomyopathy: Congestive Right heart pressures - Normal RECOMMENDATIONS Stress test to establish perfusion/viability of LAD territory as well as inferior ischemia. IF LAD a nd inferior areas have ischemia will recommend CABG. Continue asa/plavix for PVD and CAD for now. DESCRIPTION OF PROCEDURE The patient arrived to the procedure lab. The risks and benefits of the procedure as well as a full d escription of our services here and lack of surgical backup were fully explained to the patient and/o r their significant other prior to the catheterization. The Timeout was completed, verifying the keith ect patient and procedure. The patient's procedural site was prepped and draped in the usual fashion. Local anesthetic was given subcutaneously to right groin region with Lidocaine 2%. Using a modified Seldinger technique, arterial access was obtained via the right femoral artery, a 4Fr sheath was inse rted. Venous access was obtained via the right femoral vein, a 7Fr sheath was inserted. A 7Fr thermal dilution catheter was inserted and right heart pressures were recorded, it was then advanced to PA p osition for cardiac outputs. Thermal dilution cardiac outputs were then recorded. O2 saturations were then obtained. The Thermal dilution catheter was then removed. Left Ventriculography was performed i n VALDIVIA projection using a 4 Fr. Pigtail catheter. LV to AO pullback pressures were then recorded. Simu ltaneous pressures were then recorded. Left Coronary Artery selective angiography was performed in mu ltiple views using a 4 Fr. JL5 catheter. Right Coronary Artery selective angiography was then perform ed in multiple views using a 4 Fr. 3DRC catheterPeripheral Findings: Abdominal Aorta: small to modera te sized descending aortic aneurysm, wth significant aorto iliac tortuosity. Would not recommend IAB P. The arterial sheath was pulled and manual compression applied until hemostasis is achieved.. The veno us sheath was then pulled and manual compression applied until hemostasis achieved CORONARY ANGIOGRAPHY DOMINANCE: Right Dominant LEFT HEART ASSESSMENT Left Ventricular Ejection Fraction: by LV Gram 30 % Depressed Left Ventricular systolic function Normal Left Ventricular End Diastolic Pressure Inferior Mid Hypokinesis - Severe. Anterior Hypokinesis - Moderate RIGHT HEART ASSESSMENT Thermal CO: 6.88 Thermal CI: 3.13 Rich CO: 9.85 Rich CI: 4.48 PW: 20/02 10 PA: 32/6 17 RV: 35/0 3 RA: 06/07 1 PVR: 81 SVR: 1105 Right Heart pressures - normal LEFT MAIN: No significant disease noted LEFT ANTERIOR DECENDING ARTERY: MID LAD: is occluded, Severe calcification DIAGONAL 1: Proximal - No significant disease noted CIRCUMFLEX ARTERY: Mild luminal irregularities less than 30% RIGHT CORONARY ARTERY: PROX RCA: Mild luminal irregularities less than 40% tubular with ectasia upstream and downstream. DISTAL RCA: 60 at PDA bifurcation. % Stenosis RT PLV: Angiographically normal RT PDA: Proximal - Mild calcification, Proximal - Previously placed stent is patent COLLATERAL FLOW: Collateral flow from Left to Left Collateral flow from Right to Left PERIPHERAL FINDINGS: Abdominal Aorta: small to moderate sized descending aortic aneurysm, wth significant aorto iliac tort uosity. Would not recommend IABP. INTERVENTION INFORMATION COMPLICATIONS No Complications PROCEDURE MEDICATIONS Oxygen: 2 L/min via nasal cannula Baby Aspirin (81mg) 81 Tabs PO @ 08/08/2017 11:36:25 Plavix 75 mg PO 08/08/2017 11:36:32 SUMMARY OF HEMODYNAMIC DATA Time AIR REST RA 06/07 (1) SV 11:41:30 RV 35/0, 3 11:41:48 PW 20/02 (10) PV 11:43:14 PA 32/6 (17) PA 11:44:24 LV 142/-15, 9 11:49:35 LV 136/-15, 8 11:49:42 LV 144/-14, 10 11:50:12 PW 19/11 (11) 11:50:12 LV 144/-14, 9 11:50:17 PW 18 (14) 11:50:17 LV 143/-14, 10 11:50:53 RV 36/-2, 3 11:50:53 LV 133/-14, 13 11:52:06 LV 129/-9, 9 11:52:12 LVp 135/-11, 7 11:52:17 AOp 147/69 (100) 11:52:22 AO 113/80 (96) SA 11:54:41 Type SV CO (l/m) CI (l/m/ HR Time AIR REST Thermal 80.00 6.88 3.13 86 11:41:30 Rich 114.50 9.85 4.48 86 11:41:30 Label % O2 Pres/Loc Time AIR REST AO 91 PV 11:59:04 PA 67 PA 11:59:10 Signed By Dex Yousif MD On 08/17/2017 08:27:25 Dex Yousif MD
== END 2017-08-09 14:20 | disposition home or self-care (01) | DRG 287 ==
LOC: ED 09:40 → PCU 11:19
PROVIDERS: Family Medicine; Internal Medicine Cardiovascular Disease; Admitting Provider Internal Medicine; Emergency Provider Emergency Medicine; Visit Provider Internal Medicine
DX: I11.0 Hypertensive heart disease with heart failure (principal); I50.21 Acute systolic (congestive) heart failure; I25.10 Atherosclerotic heart disease of native coronary artery without angina pectoris; I42.9 Cardiomyopathy, unspecified; E87.6 Hypokalemia; D64.9 Anemia, unspecified; I73.9 Peripheral vascular disease, unspecified; E78.5 Hyperlipidemia, unspecified; Z85.46 Personal history of malignant neoplasm of prostate; I25.2 Old myocardial infarction; R79.89 Other specified abnormal findings of blood chemistry; Z95.5 Presence of coronary angioplasty implant and graft; Z79.02 Long term (current) use of antithrombotics/antiplatelets; Z79.82 Long term (current) use of aspirin
CPT/HCPCS: 36415; 71045; 75625; 80048; 80051; 80053; 80061; 81001; 82728; 82803; 83540; 83550; 83605; 83735; 83880; 84153; 84443; 84484; 85025; 85027; 85610; 85730; 93005; 93306; 93460; 93970; 97110; 97162; 97166; 97530; 99282; J7030; Q9967; A4216; C1751; C1769; C1894; G0103; J1940

== ENCOUNTER 2017-08-11 12:00 | Inpatient (IN) | payer MEDICARE, BC, SELFPAY ==
--- NOTE | 2017-08-11 12:16 | EKG12_ITS ---
Test Reason : GENERAL WEAKNESS Blood Pressure : / mmHG Vent. Rate : 085 BPM Atrial Rate : 085 BPM P-R Int : 142 ms QRS Dur : 086 ms QT Int : 406 ms P-R-T Axes : 003 012 087 degrees QTc Int : 483 ms Normal sinus rhythm Normal ECG Confirmed by DARRELL BYRD, CHINEDU ([id number]), newspaper photo editor LV MORELAND ([id number]) on 08/17/2017 5:29:50 PM Referred By: JENNA Confirmed By:CHINEDU RAMÍREZ MD
--- NOTE | 2017-08-11 13:10 | RAD_ITS ---
STUDY: X-RAY CHEST REASON FOR EXAM: Male, 77 years old. Weakness. History of myocardial infarction and stent placement. TECHNIQUE: Single frontal view of the chest. COMPARISON: August 05, 2017 FINDINGS: There are hypoventilatory changes at both bases, right greater than left, relatively unchanged. There are bilateral pleural effusions, right greater than left, relatively unchanged. There is stable cardiomegaly. Normal mediastinum and ardha. Normal visualized pulmonary arteries. There is marked aortic tortuosity with calcification unchanged. Normal visualized thoracic spine. Normal visualized ribs, clavicles, and shoulders. There is no demonstrated abnormality of the visualized soft tissue structures of the upper abdomen. RAD/Chest 1 View IMPRESSION: Stable cardiomegaly, low volume inspiration and small bilateral effusions, right greater than left. No new or acute findings. Electronically Signed: Christian Ventura MD at 11:29 EDT , Service support ,
--- NOTE | 2017-08-11 16:17 | DT_ITS ---
This patient was seen during an EMR downtime August 08, 2017 - August 15, 2017. This patient may have a combination of paper and electronic documentation or all paper documentation. All documentation is viewable within the e-chart portion of [facility] for each patient visit.
[2017-08-13 12:25] LABS: Bacteria 0 SEEN /hpf (None Seen); Mucous, Urine 0 SEEN /hpf (<or=2+); Red Blood Cells-Urine 0 SEEN /hpf (0-5); White Blood Cells 0 SEEN /hpf (0-5)
[2017-08-13 12:27] LABS: Color, Urine Yellow (Yellow); Glucose, Dipstick NEGATIVE (Normal); Ketone-Dipstick Negative (Negative); Urine Bilirubin Dipstick Negative (Negative); Urine Clarity Sl Cldy (Clear)
[2017-08-13 12:28] LABS: Leukocyte Esterase-Dipstick Negative /ul (Negative); Nitrite-Dipstick Negative (Negative); Occult Blood-Urine 10 /ul (Negative); Protein-Dipstick 15 mg/dl (Negative); Squamous Epithelial Cells - UA 0-5 SEEN /hpf (0-5); Urine Urobilinogen 8 mg/dl (Normal); Urine pH 6.5 (5.0 - 8.0)
[2017-08-13 14:19] LABS: ALB/GLOB Ratio 0.7 RATIO (0.9-2.4); Albumin, Serum 2.6 g/dL (3.2-5.0); BUN 19 mg/dL (7-18); BUN/Creat Ratio 22.4 RATIO (10-20); Calcium,Total 8.3 mg/dL (8.5-10.1); Creatinine, Serum 0.85 mg/dL (0.70-1.30); EST Glomerular Filtration Rate 93 mL/min (>60); Est Glom Filt Rate - Afr Amer 113 mL/min (>60); Globulin 3.8 g/dL (2.2-4.2); Glucose 107 mg/dL (74-106); Protein, Total 6.4 g/dL (6.4-8.2)
[2017-08-13 14:20] LABS: AST(SGOT) 192 U/L (15-37); Alanine Aminotransfer ALT/SGPT 192 U/L (16-61); Alkaline Phosphatase 745 U/L (45-117); Anion Gap 8 (5-15); Chloride 104 mmol/L (98-107); Sodium Level 138 mmol/L (136-145)
[2017-08-14 13:13] LABS: Hematocrit 27.7 % (40-54); Hemoglobin 8.4 g/dl (13.0-16.5); Mean Corpuscular Hgb 27.4 pg (27.0-32.0); Mean Corpuscular Volume 90.2 fL (80-94); Red Blood Count 3.07 M/mm3 (4.6-6.2); White Blood Count 7.3 K/mm3 (4.4-11.0)
[2017-08-14 13:14] LABS: Absolute Lymphocyte Count 0.78 X10^3/ul (0.83-4.51); Absolute Neutrophil Count 6.1 X10^3/uL (2.0-7.7); Basophil# 0.01 X10^3/uL; Basophil% 0.1 % (0-1); Eosinophil# 0.01 X10^3/uL; Eosinophils% 0.1 % (0-5); Lymphocyte # 0.78 X10^3/ul (4.0); Lymphocyte % 10.7 % (19-41); Mean Platelet Vol. 8.4 fl (6.2-12.0); Monocyte# 0.43 X10^3/uL; Monocyte% 5.9 % (0-10); Neutrophil # 6.05 X10^3/uL (2.7-7.7); Neutrophil % 83.1 % (47-70); POSITIVE COUNT NO; POSITIVE DIFFERENTIAL NO; POSITIVE MORPHOLOGY NO; Platelet Count 336 K/mm3 (150-450); RBC Distribution Width CV 17.4 % (11.6-14.6); RBC Distribution Width SD 58.3 fl (35.1-43.9)
[2017-08-14 18:07] LABS: Vitamin B12 234 pg/mL (211-911)
[2017-08-15 16:59] LABS: Hematocrit 26.4 % (40-54); Hemoglobin 7.9 g/dl (13.0-16.5); Immature Platelet Fraction 1.1 % (1.0-7.9); Mean Corp Hgb Conc 29.9 g/gl (32-36); Mean Corpuscular Volume 90.1 fL (80-94); Mean Platelet Vol. 8.2 fl (6.2-12.0); Platelet Count 340 K/mm3 (150-450); RBC Distribution Width CV 17.5 % (11.6-14.6); RBC Distribution Width SD 58.1 fl (35.1-43.9); Red Blood Count 2.93 M/mm3 (4.6-6.2); Scan Indicated on CBC? Y/N NO; White Blood Count 6.6 K/mm3 (4.4-11.0)
[2017-08-15 17:00] LABS: RET-HE 20.6 pg (30-35); Reticulocyte Count 1.12 % (0.5-1.5)
[2017-08-15 22:21] LABS: BUN 16 mg/dL (7-18); Glucose 93 mg/dL (74-106)
[2017-08-15 22:22] LABS: Anion Gap 9 (5-15); BUN/Creat Ratio 21.9 RATIO (10-20); Calcium,Total 8.1 mg/dL (8.5-10.1); Chloride 104 mmol/L (98-107); Creatinine, Serum 0.73 mg/dL (0.70-1.30); EST Glomerular Filtration Rate 111 mL/min (>60); Est Glom Filt Rate - Afr Amer 135 mL/min (>60); Ferritin 3050 ng/mL (26-388); Iron 18 ug/dL (65-175); Iron Binding Capacity,Total 131 ug/dL (250-450); Potassium 3.4 mmol/L (3.5-5.1); Sodium Level 137 mmol/L (136-145)
== END 2017-08-12 18:00 | disposition skilled nursing facility (03) | DRG 812 ==
LOC: ED 16:16 → PCU 08-12 07:13 → MS3 08-18 12:08
PROVIDERS: Admitting Provider Internal Medicine; Emergency Provider Emergency Medicine; Visit Provider Internal Medicine
DX: D64.9 Anemia, unspecified (principal); I50.22 Chronic systolic (congestive) heart failure; I11.0 Hypertensive heart disease with heart failure; I25.10 Atherosclerotic heart disease of native coronary artery without angina pectoris; R29.6 Repeated falls; Z79.02 Long term (current) use of antithrombotics/antiplatelets; Z95.5 Presence of coronary angioplasty implant and graft; Z85.46 Personal history of malignant neoplasm of prostate
CPT/HCPCS: 36415; 71045; 80048; 80053; 81001; 82607; 82728; 83540; 83550; 84484; 85025; 85027; 85045; 86850; 86900; 86920; 86922; 93005; 96365; 97162; 97166; 99285; J7040; P9016; P9612; A4216; G8978; G8979; G8987; G8988

== ENCOUNTER 2017-10-04 02:49 | Emergency (ER) | payer MEDICARE, BC, SELFPAY ==
[2017-10-04 02:50] VITALS: BP 121/75; PULSE 71; RESP 19; TEMP 36.2; O2SAT 96
--- NOTE | 2017-10-04 02:53 | EKG12_ITS ---
Test Reason : STROKE Blood Pressure : / mmHG Vent. Rate : 058 BPM Atrial Rate : 058 BPM P-R Int : 126 ms QRS Dur : 086 ms QT Int : 456 ms P-R-T Axes : -02 018 039 degrees QTc Int : 447 ms Sinus bradycardia Nonspecific St segment abnormality Confirmed by JUAN BYRD, JAMES ([id number]), metropolitan editor [place]ORELAND ([id number]) on 10/06/2017 9:55:54 AM Referred By: MINERVA Confirmed By:JAMES MARTINEZ MD
--- NOTE | 2017-10-04 02:53 | CT_ITS ---
STUDY: CT BRAIN WITHOUT CONTRAST REASON FOR EXAM: Male, 77 years old. RT FACIAL DROOP- [place], ? AQUINO'S PALSY HX:ASTHMA,CAD,CHF,HTN,PROSTATE CANCER RADIATION DOSAGE (If Supplied By Facility): CTDIvol = ( 20.80 ) mGy, DLP = ( 384.27 ) mGycm TECHNIQUE: Transaxial CT imaging of the brain was performed without administration of intravenous contrast material. Individualized dose optimization techniques were used for this CT. COMPARISON: None. FINDINGS: Normal soft tissue structures. Normal calvarium. There is mild cerebral atrophy with widening of the extra-axial spaces and ventricular dilatation. There are areas of decreased attenuation within the white matter tracts of the supratentorial brain, consistent with microvascular disease changes. Normal basal ganglia and thalami. Normal brainstem. Normal cerebellum. There is no intracranial hemorrhage. There are no findings of an acute ischemic infarction. Normal visualized paranasal sinuses. CT/Brain/Head without Contrast IMPRESSION: Chronic involutional changes of the brain. N.B. : The above information has been verbally conveyed by Valentin Francisco MD to Raffi Valenzuela, Referring Physician, on 10/04/2017 03:15:03 (ET). Electronically Signed: Valentin Francisco MD at 3:14 EDT Tel , Service support ,
--- NOTE | 2017-10-04 02:54 | ED.RN ---
PER DR. PALMA NO ORDER FOR LABS AT THIS TIME, BELLS PALSY PRESENTATION,
[2017-10-04 02:55] VITALS: BP 121/75; PULSE 77; RESP 19; TEMP 36.2; O2SAT 96; BMI 24.3
--- NOTE | 2017-10-04 02:57 | ED.VISSUMM ---
- ER Visit Summary Date of Service: 10/04/17 Chief Complaint: Right facial droop History of Present Illness: The patient is a 77 M patient last known normal 0150, 1 hour prior to arrival. He is taken to the restroom from [facility]. Staff checked on him 20 minutes later noticed right facial drooping. EMS was called. Reported slurred speech in addition. Stroke team activated from the field at 0241. Patient evaluated bedside. Denies any recent illness. No headache. No paresthesias. No hemiparesis. No stroke history. Physical Examination: General: Alert and oriented ?3, no acute distress HEENT: Normocephalic, atraumatic. Moist mucosa membranes. There is weakness to the right face with facial drooping, there is no forehead sparing. Sensation was intact to both sides of the face. Neck: supple, nontender. Cardiovascular: Regular rate and rhythm, no murmurs Respiratory: Normal breath sounds, symmetric, no distress Abdomen: Soft, nontender, nondistended Extremities: Nontender, no edema, pulses intact ?4 Neuro: no focal neurological deficits. NIH equal 2 for right side droop. Test Results: BGT 81. EKG sinus bradycardia rate [address] or T-wave changes. CT scan and discussion radiology negative. Emergency Department Course and Treatment: Upon arrival evaluate patient had Medina's palsy on the right side of his face, there is no forehead sparing. He had sensation intact of the face symmetric. Stroke team was called off. Blood glucose normal EKG is sinus. With his age I did obtain a CAT scan discussion radiology was negative. Sister came to the ED. Updated on findings. They are reassured. He is not a diabetic. Started on antiviral and prednisone. He will follow-up as an outpatient. Treatment Plan: [] Disposition: Discharge Impression: Right facial Medina's palsy This note was generated with ThisClicks dictation software. It may contain incorrect words, spelling, and punctuation that were not noted in review of the chart prior to signing ED Disposition - Plan for ED Patient: Disposition: Home or Assisted Living Chief Complaint: Neuro S/Sx Diagnosis: Right-sided Medina's palsy Instructions: ED [place] Palsy Prescriptions: Prednisone [Deltasone] 60 mg PO DAILY #18 tablet Valacyclovir HCl [Valacyclovir] 1,000 mg PO TID #21 tablet Referrals: Dariel Henriquez MD [CONSULTING PHYSICIAN] - 2 Days
[2017-10-04 03:38] VITALS: BP 134/87; PULSE 64; RESP 22; O2SAT 98
[2017-10-04] MEDS: Acyclovir 800 MG Tablet PO (03:38)
[2017-10-04] MEDS: predniSONE 20 MG Tablet 60 MG PO (03:38)
--- NOTE | 2017-10-04 03:39 | ED.RN ---
report called to [facility]
[2017-10-04 07:15] LABS: Bedside Glucose 81 mg/dL (70-110)
== END 2017-10-04 03:54 | disposition home or self-care (01) ==
PROVIDERS: Emergency Provider Emergency Medicine; Family Provider Family Medicine; PCP Family Medicine
DX: G51.0 Bell's palsy (principal); I25.10 Atherosclerotic heart disease of native coronary artery without angina pectoris; I10 Essential (primary) hypertension
CPT/HCPCS: 70450; 82962; 93005; 99285; J7030

== ENCOUNTER → 2017-10-24 05:00 | Outpatient (REF) | payer MEDICARE, BC, SELFPAY ==
[2017-10-24 09:54] LABS: Hematocrit 28.3 % (40-54); Hemoglobin 8.5 g/dl (13.0-16.5); Mean Corpuscular Hgb 27.3 pg (27.0-32.0); Mean Platelet Vol. 8.4 fl (6.2-12.0); Platelet Count 174 K/mm3 (150-450); RBC Distribution Width CV 18.6 % (11.6-14.6); Red Blood Count 3.11 M/mm3 (4.6-6.2); White Blood Count 4.2 K/mm3 (4.4-11.0)
[2017-10-24 10:08] LABS: Scan Indicated on CBC? Y/N NO
[2017-10-24 10:09] LABS: Anion Gap 12 (5-15); BUN 17 mg/dL (7-18); BUN/Creat Ratio 15.3 RATIO (10-20); Calcium,Total 8.5 mg/dL (8.5-10.1); Chloride 105 mmol/L (98-107); Creatinine, Serum 1.11 mg/dL (0.70-1.30); EST Glomerular Filtration Rate 68 mL/min (>60); Est Glom Filt Rate - Afr Amer 83 mL/min (>60); Glucose 96 mg/dL (74-106); Potassium 4.2 mmol/L (3.5-5.1); Sodium Level 142 mmol/L (136-145)
== END ==
LOC: OLS.WHLCAR 05:00
PROVIDERS: Visit Provider Family Medicine
DX: D64.9 Anemia, unspecified (principal); I11.0 Hypertensive heart disease with heart failure; I50.9 Heart failure, unspecified
CPT/HCPCS: 36415; 80048; 85027

== ENCOUNTER 2018-03-18 02:01 | Inpatient (IN) | payer MEDICARE, BC, SELFPAY ==
[2018-03-18] VITALS (21 sets, daily range): BP systolic 85–125; BP diastolic 44–66; PULSE 60–111; RESP 16–20; TEMP 36.6–37.3; O2SAT 92–99; BMI 23.4; BMI 21.9
--- NOTE | 2018-03-18 02:15 | RAD_ITS ---
STUDY: X-RAY - RIGHT HIP REASON FOR EXAM: Male, 78 years old. Fall, pain right hip TECHNIQUE: 2 views of the hip. AP view of the pelvis COMPARISON: None. FINDINGS: There is diffuse demineralization of the osseous structures. There is arteriosclerosis. Degenerative changes of the bilateral sacroiliac joints. Trabecular pattern is sclerosis along the bilateral iliacs and rami pubis. There is heterogeneous trabecular pattern involving the bilateral femoral and visualized lumbar spine. Status post presumed lower lumbar laminectomy. Acute femoral neck fracture with foreshortening and minimal lateral displacement. Normal visualized superior and inferior pubic rami and ischial tuberosities. Bilateral hip joint narrowing. RAD/HIP, UNI W/ Pelvis 2-3 Views IMPRESSION: Acute fracture of the right femoral head and osteoporotic bone with heterogeneous trabecular pattern, neoplastic disease is suspected. This may be a pathologic fracture. Arteriosclerosis and degenerative changes. Electronically Signed: Mahnaz Garcia MD at 4:06 EST , Service support ,
--- NOTE | 2018-03-18 02:30 | RAD_ITS ---
STUDY: X-RAY CHEST REASON FOR EXAM: Male, 78 years old. Fracture right hip, patient incoherent. TECHNIQUE: Single AP portable view of the chest. 2 images COMPARISON: Chest x-ray 08/11/2017. FINDINGS: Hazy opacification of the right hemithorax. Small right pleural effusion. Normal size heart. Normal mediastinum and radha. Normal visualized pulmonary arteries. There is atherosclerotic calcification of the aortic arch with tortuosity. There are diffuse degenerative changes of the visualized thoracic spine. There is demineralization of osseous structures. Heterogeneous trabecular pattern of the ribs with areas of sclerosis. There is no demonstrated abnormality of the visualized soft tissue structures of the upper abdomen. RAD/Chest 1 View IMPRESSION: Interval developing of hazy airspace opacification of the right hemithorax with right pleural effusion. Underlying parenchymal pathology such as infiltrate/pneumonia or neoplastic disease may be present. Correlation to history recommended which then made be further interrogated with AP chest. Heterogeneous trabecular pattern suspicious for neoplastic disease. Electronically Signed: Mahnaz Garcia MD at 4:08 EST , Service support ,
--- NOTE | 2018-03-18 03:29 | HP.PCM_ITS ---
Problem List (1) Benign essential hypertension Status: Chronic (2) Femur fracture, right Status: Acute Qualifiers: Encounter type: initial encounter Fracture type: closed History of Present Illness Date of Admission: 03/18/18 Chief Complaint: fall The patient is a 78 year old M with a significant history of debility; mild cognitive impairment; chronic systolic congestive heart failure; hypertension; coronary artery disease; ischemic cardiomyopathy; chronic back pain; lumbar spinal stenosis; depression and anxiety who presented with a fall. Patient mauricio bowie at a long-term. Reportedly he fell out of his bed. Patient complains of excruciating steady pain in his right thigh. His pain increases with moving. He denies any ameliorating factors. His pain is nonradiating X-ray of his pelvis showed acute fracture of the right femoral head and osteoporotic bone with heterogeneous trabecular pattern, neoplastic disease is suspected. Per radiologist interpretation this may be a pathological fracture. At emergency department patient received a nerve block. Emergency department doctor reported discussing the case with Dr. Farah orthopedic doctor. Per emergency department doctor patient will have intervention on 03/19/2018. Past Medical History Past Medical History (Chronic Problems): Chronic Problems History of allergy (Chronic) Benign essential hypertension (Chronic) Allergies No Known Allergies Allergy (Verified 03/18/18 02:06) Home Medications: Ambulatory Orders Medication Instructions Recorded Aspirin [Aspirin, Baby] 81 mg PO DAILY@0800 10/04/17 Carvedilol [Coreg] 3.125 mg PO BID 10/04/17 Lisinopril [Zestril] 2.5 mg PO DAILY 10/04/17 Omeprazole [Prilosec] 20 mg PO DAILY 10/04/17 ALPRAZolam [Xanax] 0.5 mg PO TID PRN PRN 03/18/18 Ammonium Lactate 03/18/18 Atropine [Atropisol] 4 drop PO Q4H PRN PRN 03/18/18 Mirtazapine 15 mg PO QHS 03/18/18 Morphine Sulfate 5 mg PO Q2H PRN PRN 03/18/18 Triamcinolone 0.1% Cream [Kenalog] 1 applic TOPICAL 4X/DAY 03/18/18 traMADol [Ultram] 50 mg PO BID 03/18/18 Surgical History: appendectomy Lives: [facility] Smoking Status: Current some day smoker Tobacco Use: Cigars Alcohol: Occasional - *Family History Maternal History Items: - - Patient denied any family history of hypertension, heart disease, diabetes or any medical condition. Paternal History Items: - - Patient denied any family history of hypertension, heart disease, diabetes or any medical condition. Review of Systems Constitutional: Denies: Chills, Fever HEENT: Denies: Head Aches, Sinus Congestion, Sinus Drainage Cardiovascular: Denies: Chest Pain, Palpitations Respiratory: Denies: Cough, Shortness of breath at rest, Sputum production Gastrointestinal: Denies: Abdominal Pain, Nausea, Vomiting Genitourinary: Denies: Dysuria Musculoskeletal: Reports: Joint Pain - Left hip. Denies: Joint Tenderness Skin: Denies: Rash, Wounds Neurological: Denies: Numbness, Tingling Psychiatric: Denies: Anxiety, Depression, Homicidal Ideations, Suicidal Ideations Hematologic/ Lymphatic: Denies: Easy Bruising, Easy Bleeding VTE Information - Inpt Only VTE Present on Admission: No VTE Mechan Device Prophylaxis: SCD's VTE Pharm Prophylaxis ordered?: Yes Patient Problems: Active and Suspected Problems Femur fracture, right (Acute) - Physical Exam General: Alert, Oriented x3, Cooperative HEENT: Atraumatic, PERRLA, EOMI, Normocephalic Neck: Supple, No JVD, Negative Carotid Bruits Lungs: Clear to auscultation, Normal air movement Cardiovascular: Regular rate, No murmurs Abdomen: Bowel Sounds Present, Soft, Non Tender Extremities: No edema, Capillary Refill Less than 3 Seconds, Tenderness - Right hip with touch or movement. Skin: No rashes, No breakdown Musculoskeletal: No Tenderness to Palpation of Joints or Extremities Neurological: Cranial nerves II-XII grossly intact, - - Unable to raise left lower extremity. Unable to raise right lower extremity. Psych/Mental Status: Normal Affect, Appropriate Vital Signs Temp Pulse Resp BP Pulse Ox 97.9 F 76 16 125/64 H 95 03/18/18 02:02 03/18/18 02:07 03/18/18 02:07 03/18/18 02:02 03/18/18 02:07 Oxygen Delivery Method Room Air Weight: 76.3 kg Body Mass Index (BMI) 23.4 Finger Stick Blood Glucose 81 Assessment/Plan All Active Problems Femur fracture, right (Acute) The patient is a 78 year old M with a significant history of debility; mild cognitive impairment; chronic systolic congestive heart failure; hypertension; coronary artery disease; ischemic cardiomyopathy; chronic back pain; lumbar spinal stenosis; depression and anxiety who presented with a fall with radiographic evidence of acute fracture of the right femoral head and osteoporotic bone with heterogeneous trabecular pattern, with suspected pathological fracture from possible neoplastic disease. Acute fracture of the right femoral head Radiographic evidence of acute fracture of the right femoral and osteoporotic bone with heterogeneous trabecular pattern, with suspected pathological fracture from possible neoplastic disease. Orthopedic Surgeon will see patient on 03/19/2012 for probable pinning. CBC; BMP; PT/INR ordered from the emergency department. Awaiting results N.p.o. order placed on the night of 03/19/2018 We will get a preoperative EKG. Patient denies any chest pain or shortness of breath at the time of examination. Morphine sulfate and Ultram continued As needed antiemetic ordered. Bowel protocol initiated. Possible neoplastic disease of right femur. Patient is a DNR CC. Discussed with patient goals of care. Hypertension On admission his blood pressure was fairly stable Lisinopril, and carvedilol ordered. Trend blood pressures and adjust blood pressure medication. GERD PPI continued DVT Prophylaxis Heparin subcutaneous continued SCD ordered Code Visit Inpatient E&M: 00239 Init Hosp L3
[2018-03-18] MEDS: Bupivacaine Mpf 0.5% 30 ML VIAL INFILT (03:45)
--- NOTE | 2018-03-18 03:52 | ED.VISSUMM ---
- ER Visit Summary Date of Service: 03/18/18 Chief Complaint: Right hip injury History of Present Illness: The patient is a 78 M presenting for evaluation secondary to right hip injury. Patient is a [facility] patient and is DNR comfort care. Report is that the patient suffered a fall at the [facility] and was complaining of right hip pain. Patient is really unable to provide additional history, as he is really only alert and oriented x1. He is complaining of right hip pain. He is also complaining of some back pain which is apparently chronic. Physical Examination: Cachectic appearing male lying in the bed no acute distress vital signs within normal limits. Head normocephalic. Neck was nontender. Heart was regular rate and rhythm with a 2 out of 6 systolic murmur. Lungs clear. Abdomen soft nontender. Right hip was noted to be externally rotated, extremities were warm with +1 peripheral pulses that are bilaterally symmetric. Patient is alert and oriented only to person Test Results: Hip x-ray demonstrates a right femoral neck fracture. CBC shows anemia with a hemoglobin of 5 and a baseline of 7-8 Emergency Department Course and Treatment: Patient presented secondary to a fall. Patient is DNR comfort care, so a significant workup was not obtained initially. Patient did have confirmation of a hip fracture on x-ray, so some screening labs were obtained. Patient was incidentally found to have a hemoglobin of 5. I discussed patient's case with orthopedics who is aware, the patient will be admitted under the hospitalist. For pain control in this patient I opted to perform a ultrasound-guided femoral nerve block. Linear probe was used to identify the patient's neurovascular bundle. Patient was prepped with ChloraPrep. A 19-gauge spinal needle was used and was introduced under direct ultrasound guidance. 30 cc of 0.5% bupivacaine were instilled. Patient tolerated this well. Patient was admitted under the hospitalist. Disposition: Admission Impression: 1. Right femoral neck fracture 2. Anemia 3. Ultrasound-guided right femoral nerve block This note was generated with [employer]io[employer] dictation software. It may contain incorrect words, spelling, and punctuation that were not noted in review of the chart prior to signing ED Disposition - Plan for ED Patient: Disposition: Acute Care Hospital [facility] Chief Complaint: Fall
[2018-03-18 04:54] LABS: International Normalized Ratio 1.2; Prothrombin Time (Protime)PT. 15.6 SECONDS (11.7-14.9)
[2018-03-18 04:58] LABS: Absolute Lymphocyte Count 0.49 X10^3/ul (0.83-4.51); Absolute Neutrophil Count 2.1 X10^3/uL (2.0-7.7); Basophil# 0.01 X10^3/uL; Basophil% 0.3 % (0-1); Eosinophils% 3.4 % (0-5); Hematocrit 18.1 % (40-54); Hemoglobin 5.3 g/dl (13.0-16.5); Lymphocyte # 0.49 X10^3/ul (4.0); Lymphocyte % 16.4 % (19-41); Mean Corp Hgb Conc 29.3 g/gl (32-36); Mean Corpuscular Hgb 29.1 pg (27.0-32.0); Mean Corpuscular Volume 99.5 fL (80-94); Monocyte# 0.24 X10^3/uL; Monocyte% 8.1 % (0-10); Neutrophil # 2.06 X10^3/uL (2.7-7.7); Neutrophil % 69.1 % (47-70); Platelet Count 200 K/mm3 (150-450); RBC Distribution Width CV 19.1 % (11.6-14.6); RBC Distribution Width SD 66.1 fl (35.1-43.9); Red Blood Count 1.82 M/mm3 (4.6-6.2)
[2018-03-18 05:00] LABS: Anion Gap 11 (5-15); BUN 32 mg/dL (7-18); BUN/Creat Ratio 36.7 RATIO (10-20); Calcium,Total 8.4 mg/dL (8.5-10.1); Chloride 108 mmol/L (98-107); Creatinine, Serum 0.87 mg/dL (0.70-1.30); Differential Indicated SCAN CRITERIA MET; EST Glomerular Filtration Rate 90 mL/min (>60); Est Glom Filt Rate - Afr Amer 109 mL/min (>60); Estimated Creatinine Clearance 74.53 ml/min; Glucose 78 mg/dL (74-106); POSITIVE COUNT YES; POSITIVE DIFFERENTIAL YES; POSITIVE MORPHOLOGY YES; Potassium 4.4 mmol/L (3.5-5.1); Sodium Level 140 mmol/L (136-145)
--- NOTE | 2018-03-18 05:00 | EKG12_ITS ---
Test Reason : Blood Pressure : / mmHG Vent. Rate : 070 BPM Atrial Rate : 070 BPM P-R Int : 100 ms QRS Dur : 084 ms QT Int : 390 ms P-R-T Axes : -25 058 236 degrees QTc Int : 421 ms Sinus rhythm with short NC ST & T wave abnormality, consider lateral ischemia Abnormal ECG When compared with ECG of 04-OCT-2017 03:12, Nonspecific T wave abnormality now evident in Inferior leads T wave inversion now evident in Anterolateral leads Confirmed by DARRELL BYRD, CHINEDU ([id number]), editorial assistant LV MORELAND ([id number]) on 03/21/2018 5:38:28 PM Referred By: JOSEPH Confirmed By:CHINEDU RAMÍREZ MD
[2018-03-18 06:17] LABS: Platelet Estimate ADEQUATE (ADEQ)
[2018-03-18 06:18] LABS: Anisocytosis 3+; Differential Comment SCANNED; Hypochromasia 1+; Polychromasia RARE; Tear Drop Cell 1+
[2018-03-18 07:08] LABS: Ferritin 5015 ng/mL (26-388); Iron 55 ug/dL (65-175); Iron Binding Capacity,Total 170 ug/dL (250-450); LDH 427 U/L (87-241); PERCENT IRON SATURATION 32.4 % (15.0-55.0)
--- NOTE | 2018-03-18 08:13 | CASEMGMT ---
Social Work Note Per junior linux systems administrator questions pt has completed advanced directives but unable to bring in copies. Prudence Damon WELDING ROD COATER, TAX ANALYST
--- NOTE | 2018-03-18 08:29 | PCM.CONS.GEN ---
Reason for Consult Date of Consultation: 03/18/18 Reason for Consultation: Right hip pain History of Present Illness: The patient is a 78 year old M [bedridden. with mild dementia, fell last night suffering a right subcapital hip fx. He was admitted to [facility] by the hospitalist and orthopedic consult was sought. At the time of my evaluation the patient was sleeping. Upon arousal he reported right hip pain.] Past Medical History Past Medical History (Chronic Problems): Chronic Problems History of allergy (Chronic) Benign essential hypertension (Chronic) Allergies No Known Allergies Allergy (Verified 03/18/18 02:06) Home Medications: Ambulatory Orders Medication Instructions Recorded Aspirin [Aspirin, Baby] 81 mg PO DAILY@0800 10/04/17 Carvedilol [Coreg] 3.125 mg PO BID 10/04/17 Lisinopril [Zestril] 2.5 mg PO DAILY 10/04/17 Omeprazole [Prilosec] 20 mg PO DAILY 10/04/17 ALPRAZolam [Xanax] 0.5 mg PO TID PRN PRN 03/18/18 Acetaminophen 650 mg RC Q4H PRN PRN 03/18/18 Ammonium Lactate 1 applicatio BID 03/18/18 Atropine [Atropisol] 4 drop PO Q4H PRN PRN 03/18/18 Biotene PO TID 03/18/18 Ferrous Sulfate 325 mg PO 03/18/18 Inulin/Chromium Picolinate [Fiber 1 tablet DAILY 03/18/18 Gummies] Lidocaine [Lidoderm Patch] 1 patch TOPICAL DAILY 03/18/18 Magnesium Hydroxide [Milk Of 30 ml PO DAILY PRN PRN 03/18/18 Magnesia] Mirtazapine 15 mg PO QHS 03/18/18 Morphine Sulfate 5 mg PO Q2H PRN PRN 03/18/18 Multivitamin with Minerals 1 each PO 03/18/18 [Multiple Vitamin] Nitroglycerin 0.4 mg SL 03/18/18 Peg 400/Hypromellose/Glycerin 2 drop RIGHT EYE Q2H PRN PRN 03/18/18 [Artificial Tears] Triamcinolone 0.1% Cream [Kenalog] 1 applic TOPICAL 4X/DAY 03/18/18 traMADol [Ultram] 50 mg PO BID 03/18/18 traMADol [Ultram] 50 mg PO Q4H PRN PRN 03/18/18 Surgical History: appendectomy Lives: Intermediate Smoking Status: Current some day smoker Tobacco Use: Cigars Alcohol: Occasional - *Family History Maternal History Items: - - Patient denied any family history of hypertension, heart disease, diabetes or any medical condition. Paternal History Items: - - Patient denied any family history of hypertension, heart disease, diabetes or any medical condition. Patient Problems: Active and Suspected Problems Femur fracture, right (Acute) - Physical Exam General: Alert, Cooperative, No apparent distress Extremities: No clubbing, No cyanosis, Capillary Refill Less than 3 Seconds, No Calf Tenderness, Tenderness - right hip with slight shortening of RLE Neurological: Neuro grossly intact Comment: Xrays show subcapitalfx of right hip with trabecular pattern Vital Signs Temp Pulse Resp BP Pulse Ox 98.1 F 69 16 96/51 L 98 03/18/18 05:24 03/18/18 05:24 03/18/18 05:24 03/18/18 05:24 03/18/18 06:51 Oxygen Flow Rate (L/min) 2 Oxygen Delivery Method Room Air Weight: 157 lb 2 oz Body Mass Index (BMI) 21.9 Finger Stick Blood Glucose 81 Intake and Output for Last 24 Hours 03/16/18 03/17/18 03/18/18 23:59 23:59 23:59 Intake Total 500 / 500 Balance 500 / 500 Laboratory Tests Past 24 Hrs 03/18/18 03/18/18 03/18/18 04:30 04:30 04:30 WBC 3.0 L RBC 1.82 L Hgb 5.3 L* Hct 18.1 L MCV 99.5 H MCH 29.1 MCHC 29.3 L RDW 19.1 H RDW Differential 66.1 H Plt Count 200 MPV 8.0 Immature Gran % (Auto) 2.700 H Neut % (Auto) 69.1 Lymph % (Auto) 16.4 L [place] % (Auto) 8.1 Eos % (Auto) 3.4 Baso % (Auto) 0.3 Absolute Neuts (auto) 2.1 Absolute Lymphs (auto) 0.49 L Total Counted Not Reportable Differential Comment SCANNED Diff Path Review May foll Platelet Estimate ADEQUATE Polychromasia RARE Hypochromasia 1+ Anisocytosis 3+ Tear Drop Cells 1+ Haptoglobin PT 15.6 H INR 1.2 APTT 33.0 Sodium 140 Potassium 4.4 Chloride 108 H Carbon Dioxide 21.0 Anion Gap 11 BUN 32 H Creatinine 0.87 Estim Creat Clear Calc 74.53 Est GFR (MDRD) Af Amer 109 Est GFR (MDRD) Non-Af 90 BUN/Creatinine Ratio 36.7 H Glucose 78 Calcium 8.4 L Iron TIBC Iron Saturation Ferritin Lactate Dehydrogenase Vitamin B12 Folate Blood Type Antibody Screen Crossmatch 03/18/18 03/18/18 03/18/18 04:30 07:00 07:00 WBC RBC Hgb Hct MCV MCH MCHC RDW RDW Differential Plt Count MPV Immature Gran % (Auto) Neut % (Auto) Lymph % (Auto) [place] % (Auto) Eos % (Auto) Baso % (Auto) Absolute Neuts (auto) Absolute Lymphs (auto) Total Counted Differential Comment Diff Path Review Platelet Estimate Polychromasia Hypochromasia Anisocytosis Tear Drop Cells Haptoglobin Pending PT INR APTT Sodium Potassium Chloride Carbon Dioxide Anion Gap BUN Creatinine Estim Creat Clear Calc Est GFR (MDRD) Af Amer Est GFR (MDRD) Non-Af BUN/Creatinine Ratio Glucose Calcium Iron 55 L TIBC 170 L Iron Saturation 32.4 Ferritin 5015 H Lactate Dehydrogenase 427 H Vitamin B12 Pending Folate 2.40 L Blood Type Antibody Screen Crossmatch 03/18/18 07:00 WBC RBC Hgb Hct MCV MCH MCHC RDW RDW Differential Plt Count MPV Immature Gran % (Auto) Neut % (Auto) Lymph % (Auto) [place] % (Auto) Eos % (Auto) Baso % (Auto) Absolute Neuts (auto) Absolute Lymphs (auto) Total Counted Differential Comment Diff Path Review Platelet Estimate Polychromasia Hypochromasia Anisocytosis Tear Drop Cells Haptoglobin PT INR APTT Sodium Potassium Chloride Carbon Dioxide Anion Gap BUN Creatinine Estim Creat Clear Calc Est GFR (MDRD) Af Amer Est GFR (MDRD) Non-Af BUN/Creatinine Ratio Glucose Calcium Iron TIBC Iron Saturation Ferritin Lactate Dehydrogenase Vitamin B12 Folate Blood Type Pending Antibody Screen Pending Crossmatch See Detail Assessment/Plan All Active Problems Femur fracture, right (Acute) Right subcapital femur fracture with trabecular pattern of bone suspicious for possible malignancy -- Will obtain CT scan of right hip to better characterize fracture and evaluate further for malignancy. Plan for cemented hemiarthroplasty right hip tomorrow AM Acute on chronic anemia -- Admission hemoglobin was 5.3. This is being addressed by the hospitalist with [facility] today.
--- NOTE | 2018-03-18 08:40 | CT_ITS ---
STUDY: CT RIGHT HIP REASON FOR EXAM: Male, 78 years old. Fracture status post fall. RADIATION DOSAGE (If Supplied By Facility): CTDIvol = ( 14.10 ) mGy, DLP = ( 468.12 ) mGycm TECHNIQUE: Transaxial imaging of the right hip was performed without oral contrast, and without intravenous administration of contrast material with sagittal and coronal reformatting. Individualized dose optimization techniques were used for this CT. COMPARISON: X-ray FINDINGS: There is diffuse heterogeneous sclerosis throughout the visualized osseous structures consistent with widespread metastatic disease. There is arthritic change of the visualized lower lumbar spine with spondylolisthesis and spondylolysis at the lumbosacral junction. There is fusion of the right sacroiliac joint. RIGHT HIP There is mild articular narrowing of the right hip joint, with less than 50% loss of the hyaline cartilage. There is lateral osteoarthritic spurring of the right acetabular rim. There is subcapital fracture of the right femoral neck with angulation and impaction.. PELVIS No dilated loops of bowel. Wall thickening of the distal rectum. Atherosclerotic calcifications. CT/Extremity Lower without Contra IMPRESSION: Right femoral neck fracture. Widespread osseous metastatic disease. Electronically Signed: Jacques Greenfield MD at 10:30 EST , Service support ,
[2018-03-18] MEDS: traMADol 50 MG Tablet PO ×2 (09:31→22:36)
[2018-03-18] MEDS: Carvedilol 3.125 MG TABLET PO ×2 (09:32→22:35)
[2018-03-18] MEDS: Ammonium Lactate 225 gm Bottle 1 APPLIC TOPICAL ×2 (09:33→22:41)
[2018-03-18] MEDS: ALPRAZolam 0.5 MG Tablet PO ×3 (09:34→22:36)
[2018-03-18] MEDS: morphine (oral solution) 10MG/0.5ML Syringe 5 MG SL/PO ×4 (09:34→17:30)
--- NOTE | 2018-03-18 11:53 | CASEMGMT ---
Social Work Note Pt is listed as being from [facility]. Per ortho note, pt is scheduled for surgery tomorrow. SW attempted to meet with pt to confirm discharge plans. Per RN pt is confused. Pt's daughter is present in room but states pt's son Ector is HCPOA and makes healthcare decisions and will be in later this afternoon or tomorrow. RN states pt will be at [facility] until Tuesday. SW informed pt's daughter that this worker will discuss discharge plans with pt's son Tuesday as pt will be at [facility] throughout the weekend. Plan: TBD. Pt will likely return to [facility] but this will need to be confirmed. Prudence Damon HR BUSINESS PARTNER, SCHOOL PRINCIPAL
--- NOTE | 2018-03-18 12:48 | PCM.PROGNOTE ---
Patient Problems: Active and Suspected Problems Femur fracture, right (Acute) Subjective: Chief complaint: Follow-up after admission for right femoral neck fracture, found to have acute on chronic anemia requiring blood transfusion. Patient seen and examined. Patient is awake and alert. He is a poor informant, was not able to provide detailed history. He complained of right hip pain. After my initial encounter with the patient, patient's daughter came in and I spoke with her. She stated that the patient had a history of prostate cancer 10 years ago, had radiation therapy and later followed by hormonal therapy. He has not been following up with oncology as outpatient. Few years ago, he was informed that he has elevated PSA but he never followed up and he has been refusing blood work at the care home. His blood pressure is borderline, other vital signs are stable at this time. Also, his sister mentioned that patient has been mostly bedridden for the last at least 6 months and not been ambulating significantly. Later during the day, I spoke with the son who is the power of finance attorney, explained to him about different acute issues that is going on. He is aware that his father has a right femoral neck fracture, metastatic bone disease, acute on chronic anemia and opacification of the right lung of unclear etiology. I explained to him that his father is at high risk for surgery. DNR CC documents reviewed from the care home. - Physical Exam General: Alert, Cooperative, No apparent distress HEENT: Atraumatic, PERRLA, EOMI, Normocephalic Oral: Moist Mucosa, No Gingival or Mucosal Lesions/ Ulcerations Neck: Supple, No JVD, Negative Carotid Bruits, Trachea Midline, Thyroid Normal Size and Texture Lungs: Clear to auscultation, No rhonchi, No wheeze, No rales, Diminished Cardiovascular: Regular rate, Regular Rhythm, Normal S1, Normal S2, PMI Normal Abdomen: Bowel Sounds Present, Soft, Non Tender, Non-Distended, No Hepato-splenomegaly Extremities: No clubbing, No cyanosis, No edema Skin: No rashes, No breakdown Lymphatic: No Cervical, Supraclavicular, or Inguinal Adenopathy Neurological: Cranial nerves II-XII grossly intact, Neuro grossly intact, - Psych/Mental Status: Flat Affect Vital Signs Temp Pulse Resp BP Pulse Ox 98.2 F 77 18 98/56 L 96 03/18/18 12:15 03/18/18 12:15 03/18/18 12:15 03/18/18 12:15 03/18/18 12:15 Oxygen Flow Rate (L/min) 2 Oxygen Delivery Method Nasal Cannula Weight: 157 lb 3.033 oz Body Mass Index (BMI) 21.9 Finger Stick Blood Glucose 81 Intake and Output for Last 24 Hours 03/16/18 03/17/18 03/18/18 23:59 23:59 23:59 Intake Total 500 / 500 Balance 500 / 500 Laboratory Tests Past 24 Hrs 03/18/18 03/18/18 03/18/18 04:30 04:30 04:30 WBC 3.0 L RBC 1.82 L Hgb 5.3 L* Hct 18.1 L MCV 99.5 H MCH 29.1 MCHC 29.3 L RDW 19.1 H RDW Differential 66.1 H Plt Count 200 MPV 8.0 Immature Gran % (Auto) 2.700 H Neut % (Auto) 69.1 Lymph % (Auto) 16.4 L Andrew % (Auto) 8.1 Eos % (Auto) 3.4 Baso % (Auto) 0.3 Absolute Neuts (auto) 2.1 Absolute Lymphs (auto) 0.49 L Total Counted Not Reportable Differential Comment SCANNED Diff Path Review May foll Platelet Estimate ADEQUATE Polychromasia RARE Hypochromasia 1+ Anisocytosis 3+ Tear Drop Cells 1+ Haptoglobin PT 15.6 H INR 1.2 APTT 33.0 Sodium 140 Potassium 4.4 Chloride 108 H Carbon Dioxide 21.0 Anion Gap 11 BUN 32 H Creatinine 0.87 Estim Creat Clear Calc 74.53 Est GFR (MDRD) Af Amer 109 Est GFR (MDRD) Non-Af 90 BUN/Creatinine Ratio 36.7 H Glucose 78 Calcium 8.4 L Iron TIBC Iron Saturation Ferritin Lactate Dehydrogenase Vitamin B12 Folate Blood Type Antibody Screen Crossmatch 03/18/18 03/18/18 03/18/18 04:30 07:00 07:00 WBC RBC Hgb Hct MCV MCH MCHC RDW RDW Differential Plt Count MPV Immature Gran % (Auto) Neut % (Auto) Lymph % (Auto) Andrew % (Auto) Eos % (Auto) Baso % (Auto) Absolute Neuts (auto) Absolute Lymphs (auto) Total Counted Differential Comment Diff Path Review Platelet Estimate Polychromasia Hypochromasia Anisocytosis Tear Drop Cells Haptoglobin Pending PT INR APTT Sodium Potassium Chloride Carbon Dioxide Anion Gap BUN Creatinine Estim Creat Clear Calc Est GFR (MDRD) Af Amer Est GFR (MDRD) Non-Af BUN/Creatinine Ratio Glucose Calcium Iron 55 L TIBC 170 L Iron Saturation 32.4 Ferritin 5015 H Lactate Dehydrogenase 427 H Vitamin B12 Pending Folate 2.40 L Blood Type Antibody Screen Crossmatch 03/18/18 07:00 WBC RBC Hgb Hct MCV MCH MCHC RDW RDW Differential Plt Count MPV Immature Gran % (Auto) Neut % (Auto) Lymph % (Auto) Andrew % (Auto) Eos % (Auto) Baso % (Auto) Absolute Neuts (auto) Absolute Lymphs (auto) Total Counted Differential Comment Diff Path Review Platelet Estimate Polychromasia Hypochromasia Anisocytosis Tear Drop Cells Haptoglobin PT INR APTT Sodium Potassium Chloride Carbon Dioxide Anion Gap BUN Creatinine Estim Creat Clear Calc Est GFR (MDRD) Af Amer Est GFR (MDRD) Non-Af BUN/Creatinine Ratio Glucose Calcium Iron TIBC Iron Saturation Ferritin Lactate Dehydrogenase Vitamin B12 Folate Blood Type A POSITIVE Antibody Screen NEGATIVE Crossmatch See Detail Clinical Impression(s) from Imaging Studies Hip/Pelvis X-Ray 03/18/18 02:15 IMPRESSION: Acute fracture of the right femoral head and osteoporotic bone with heterogeneous trabecular pattern, neoplastic disease is suspected. This may be a pathologic fracture. Arteriosclerosis and degenerative changes. Electronically Signed: Mahnaz Garcia MD at 4:06 EST , Service support , Chest X-Ray 03/18/18 02:30 IMPRESSION: Interval developing of hazy airspace opacification of the right hemithorax with right pleural effusion. Underlying parenchymal pathology such as infiltrate/pneumonia or neoplastic disease may be present. Correlation to history recommended which then made be further interrogated with AP chest. Heterogeneous trabecular pattern suspicious for neoplastic disease. Electronically Signed: Mahnaz Garcia MD at 4:08 EST , Service support , Lower Extremity CT 03/18/18 08:40 IMPRESSION: Right femoral neck fracture. Widespread osseous metastatic disease. Electronically Signed: Jacques Greenfield MD at 10:30 EST , Service support , Medical Necessity - Tobacco Use Smoking Status: Current some day smoker Tobacco Use: Cigars Assessment/Plan All Active Problems Femur fracture, right (Acute) This is a 78 years old male patient presented to the ED from care home because of right hip pain following a mechanical fall, found to have acute traumatic fracture of the right humeral neck and also found to have widespread metastatic disease of the bone, found to have acute on chronic anemia required blood transfusion. #1 acute traumatic right femoral neck fracture: Secondary to mechanical fall. CT scan right hip and pelvis revealed a right femoral neck fracture and widespread metastatic disease of the bone. At this time, blood pressure is borderline, heart rate and pulse ox is maintained. He is on IV morphine as needed for pain. Routine blood work remarkable for hemoglobin of 5.3 g/dL. EKG revealed normal sinus rhythm, T wave inversion in leads V4, V5 and V6, no acute ischemic changes or cardiac arrhythmias. Chest x-ray revealed complete opacification of the right lung and this is acute finding. Orthopedic surgery consulted, planning for surgery tomorrow. At this time, we may need to postpone surgery. Plan: IV morphine as needed for pain, CT scan abdomen and chest without contrast. #2 preoperative evaluation: This is an elderly patient with multiple medical problems, has been bedridden for the last several months. He had a history of metastatic prostate cancer. He is inactive at the care home. His serum creatinine is normal. Chest x-ray revealed opacified right lung. EKG reviewed as above. He had cardiac catheterization on August,, found to have single-vessel CAD with occluded LAD with collaterals, no interventions performed. He had 2D echocardiogram on the same month August, that revealed ejection fraction of 25%, stage I diastolic dysfunction and mild pulmonary hypertension. He is supposed to have nuclear stress test according to Dr. Yousif but patient refused. Based on his age, functional status, past medical history and serum creatinine, his estimated risk for perioperative myocardial infarction or cardiac arrest is 5.53%. At this time, patient is at high risk for surgery and his risk of postoperative complications is high. Plan: CT scan chest and abdomen, pulmonary consult. #3 complete opacification of the right lung: This is new compared to chest x-ray from August,. Patient is not very short of breath, maintaining pulse ox on 2 L. He is afebrile, no leukocytosis, pneumonia is doubtful. This could be due to mucous plug obstructing the right main bronchus. Plan: Pulmonology consult. #4 widespread metastatic disease of the bone: In context of history of prostate cancer, this is likely secondary to it. He is not on any active treatment at this time. #5 acute on chronic anemia: Baseline hemoglobin has been around 8 g/dL. Today's hemoglobin is 5.3 g/dL. No evidence of obvious active bleeding. He could be bleeding at the fracture site. Plan: Transfused 2 units of packed RBCs, repeat H&H after transfusion, CBC tomorrow morning. #6 hypertension: Blood pressure is borderline, continue Coreg, discontinue lisinopril. #7 CAD status post stents: EKG reviewed as above. Continue aspirin and Coreg, discontinue lisinopril. #8 chronic systolic CHF/nonischemic cardiomyopathy: At this time, stable, compensated. Patient has been given boluses of of IV fluid. Continue Coreg, discontinue lisinopril, monitor to avoid volume overload. #9 history of prostate cancer: Status post radiation therapy as well as hormonal therapy, not on active medication at this time. He does have metastatic disease. #10 CODE STATUS: DNR CC. Confirmed with the patient's son who is the power of finance attorney as well as patient's daughter. #11 DVT prophylaxis: SCDs. This note was generated with [employer] dictation software. It may contain incorrect words, spelling, and punctuation that were not noted in checking the note before signing.
--- NOTE | 2018-03-18 12:52 | PN_ITS ---
Patient Problems: Active and Suspected Problems Femur fracture, right (Acute) Subjective: Chief complaint: Follow-up after admission for right femoral neck fracture, found to have acute on chronic anemia requiring blood transfusion. Patient seen and examined. Patient is awake and alert. He is a poor informant, was not able to provide detailed history. He complained of right hip pain. After my initial encounter with the patient, patient's daughter came in and I spoke with her. She stated that the patient had a history of prostate cancer 10 years ago, had radiation therapy and later followed by hormonal therapy. He has not been following up with oncology as outpatient. Few years ago, he was informed that he has elevated PSA but he never followed up and he [facility]. His blood pressure is borderline, other vital signs are stable at this time. Also, his sister mentioned that patient has been mostly bedridden for the last at least 6 months and not been ambulating significantly. Later during the day, I spoke with the son who is the power of associate attorney, explained to him about different acute issues that is going on. He is aware that his father has a right femoral neck fracture, metastatic bone disease, acute on chronic anemia and opacification of the right lung of unclear etiology. I explained to him that his father is at high risk for surgery. DNR CC documents reviewed from the [facility]. - Physical Exam General: Alert, Cooperative, No apparent distress HEENT: Atraumatic, PERRLA, EOMI, Normocephalic Oral: Moist Mucosa, No Gingival or Mucosal Lesions/ Ulcerations Neck: Supple, No JVD, Negative Carotid Bruits, Trachea Midline, Thyroid Normal Size and Texture Lungs: Clear to auscultation, No rhonchi, No wheeze, No rales, Diminished Cardiovascular: Regular rate, Regular Rhythm, Normal S1, Normal S2, PMI Normal Abdomen: Bowel Sounds Present, Soft, Non Tender, Non-Distended, No Hepato- splenomegaly Extremities: No clubbing, No cyanosis, No edema Skin: No rashes, No breakdown Lymphatic: No Cervical, Supraclavicular, or Inguinal Adenopathy Neurological: Cranial nerves II-XII grossly intact, Neuro grossly intact, - Psych/Mental Status: Flat Affect Vital Signs Temp Pulse Resp BP Pulse Ox 98.2 F 77 18 98/56 L 96 03/18/18 12:15 03/18/18 12:15 03/18/18 12:15 03/18/18 12:15 03/18/18 12:15 Oxygen Flow Rate (L/min) 2 Oxygen Delivery Method Nasal Cannula Weight: 157 lb 3.033 oz Body Mass Index (BMI) 21.9 Finger Stick Blood Glucose 81 Intake and Output for Last 24 Hours 03/16/18 03/17/18 03/18/18 23:59 23:59 23:59 Intake Total 500 / 500 Balance 500 / 500 Laboratory Tests Past 24 Hrs 03/18/18 03/18/18 03/18/18 04:30 04:30 04:30 WBC 3.0 L RBC 1.82 L Hgb 5.3 L* Hct 18.1 L MCV 99.5 H MCH 29.1 MCHC 29.3 L RDW 19.1 H RDW Differential 66.1 H Plt Count 200 MPV 8.0 Immature Gran % (Auto) 2.700 H Neut % (Auto) 69.1 Lymph % (Auto) 16.4 L [place] % (Auto) 8.1 Eos % (Auto) 3.4 Baso % (Auto) 0.3 Absolute Neuts (auto) 2.1 Absolute Lymphs (auto) 0.49 L Total Counted Not Reportable Differential Comment SCANNED Diff Path Review May foll Platelet Estimate ADEQUATE Polychromasia RARE Hypochromasia 1+ Anisocytosis 3+ Tear Drop Cells 1+ Haptoglobin PT 15.6 H INR 1.2 APTT 33.0 Sodium 140 Potassium 4.4 Chloride 108 H Carbon Dioxide 21.0 Anion Gap 11 BUN 32 H Creatinine 0.87 Estim Creat Clear Calc 74.53 Est GFR (MDRD) Af Amer 109 Est GFR (MDRD) Non-Af 90 BUN/Creatinine Ratio 36.7 H Glucose 78 Calcium 8.4 L Iron TIBC Iron Saturation Ferritin Lactate Dehydrogenase Vitamin B12 Folate Blood Type Antibody Screen Crossmatch 03/18/18 03/18/18 03/18/18 04:30 07:00 07:00 WBC RBC Hgb Hct MCV MCH MCHC RDW RDW Differential Plt Count MPV Immature Gran % (Auto) Neut % (Auto) Lymph % (Auto) [place] % (Auto) Eos % (Auto) Baso % (Auto) Absolute Neuts (auto) Absolute Lymphs (auto) Total Counted Differential Comment Diff Path Review Platelet Estimate Polychromasia Hypochromasia Anisocytosis Tear Drop Cells Haptoglobin Pending PT INR APTT Sodium Potassium Chloride Carbon Dioxide Anion Gap BUN Creatinine Estim Creat Clear Calc Est GFR (MDRD) Af Amer Est GFR (MDRD) Non-Af BUN/Creatinine Ratio Glucose Calcium Iron 55 L TIBC 170 L Iron Saturation 32.4 Ferritin 5015 H Lactate Dehydrogenase 427 H Vitamin B12 Pending Folate 2.40 L Blood Type Antibody Screen Crossmatch 03/18/18 07:00 WBC RBC Hgb Hct MCV MCH MCHC RDW RDW Differential Plt Count MPV Immature Gran % (Auto) Neut % (Auto) Lymph % (Auto) [place] % (Auto) Eos % (Auto) Baso % (Auto) Absolute Neuts (auto) Absolute Lymphs (auto) Total Counted Differential Comment Diff Path Review Platelet Estimate Polychromasia Hypochromasia Anisocytosis Tear Drop Cells Haptoglobin PT INR APTT Sodium Potassium Chloride Carbon Dioxide Anion Gap BUN Creatinine Estim Creat Clear Calc Est GFR (MDRD) Af Amer Est GFR (MDRD) Non-Af BUN/Creatinine Ratio Glucose Calcium Iron TIBC Iron Saturation Ferritin Lactate Dehydrogenase Vitamin B12 Folate Blood Type A POSITIVE Antibody Screen NEGATIVE Crossmatch See Detail Clinical Impression(s) from Imaging Studies Hip/Pelvis X-Ray 03/18/18 02:15 IMPRESSION: Acute fracture of the right femoral head and osteoporotic bone with heterogeneous trabecular pattern, neoplastic disease is suspected. This may be a pathologic fracture. Arteriosclerosis and degenerative changes. Electronically Signed: Mahnaz Garcia MD at 4:06 EST , Service support , Chest X-Ray 03/18/18 02:30 IMPRESSION: Interval developing of hazy airspace opacification of the right hemithorax with right pleural effusion. Underlying parenchymal pathology such as infiltrate/pneumonia or neoplastic disease may be present. Correlation to history recommended which then made be further interrogated with AP chest. Heterogeneous trabecular pattern suspicious for neoplastic disease. Electronically Signed: Mahnaz Garcia MD at 4:08 EST , Service support , Lower Extremity CT 03/18/18 08:40 IMPRESSION: Right femoral neck fracture. Widespread osseous metastatic disease. Electronically Signed: Jacques Greenfield MD at 10:30 EST , Service support , Medical Necessity - Tobacco Use Smoking Status: Current some day smoker Tobacco Use: Cigars Assessment/Plan All Active Problems Femur fracture, right (Acute) This is a 78 years old male patient [facility] because of right hip pain following a mechanical fall, found to have acute traumatic fracture of the right humeral neck and also found to have widespread metastatic disease of the bone, found to have acute on chronic anemia required b lood transfusion. #1 acute traumatic right femoral neck fracture: Secondary to mechanical fall. CT scan right hip and pelvis revealed a right femoral neck fracture and widespread metastatic disease of the bone. At this time, blood pressure is borderline, heart rate and pulse ox is maintained. He is on IV morphine as needed for pain. Routine blood work remarkable for hemoglobin of 5.3 g/dL. EKG revealed normal sinus rhythm, T wave inversion in leads V4, V5 and V6, no acute ischemic changes or cardiac arrhythmias. Chest x-ray revealed complete opacification of the right lung and this is acute finding. Orthopedic surgery consulted, planning for surgery tomorrow. At this time, we may need to postpone surgery. Plan: IV morphine as needed for pain, CT scan abdomen and chest without contrast. #2 preoperative evaluation: This is an elderly patient with multiple medical problems, has been bedridden for the last several months. He had a history of metastatic prostate cancer. [facility]. His serum creatinine is normal. Chest x-ray revealed opacified right lung. EKG reviewed as above. He had cardiac catheterization on August,, found to have single-ve ssel CAD with occluded LAD with collaterals, no interventions performed. He had 2D echocardiogram on the same month August, that revealed ejection fraction of 25%, stage I diastolic dysfunction and mild pulmonary hypertension. He is supposed to have nuclear stress test according to Dr. Yousif but patient refused. Based on his age, functional status, past medical history and serum creatinine, his estimated risk for perioperative myocardial infarction or cardiac arrest is 5.53%. At this time, patient is at high risk for surgery and his risk of postoperative complications is high. Plan: CT scan chest and abdomen, pulmonary consult. #3 complete opacification of the right lung: This is new compared to chest x-ray from August,. Patient is not very short of breath, maintaining pulse ox on 2 L. He is afebrile, no leukocytosis, pneumonia is doubtful. This could be due to mucous plug obstructing the right main bronchus. Plan: Pulmonology consult. #4 widespread metastatic disease of the bone: In context of history of prostate cancer, this is likely secondary to it. He is not on any active treatment at this time. #5 acute on chronic anemia: Baseline hemoglobin has been around 8 g/dL. Today's hemoglobin is 5.3 g/dL. No evidence of obvious active bleeding. He could be bleeding at the fracture site. Plan: Transfused 2 units of packed RBCs, repeat H&H after transfusion, CBC tomorrow morning. #6 hypertension: Blood pressure is borderline, continue Coreg, discontinue lisinopril. #7 CAD status post stents: EKG reviewed as above. Continue aspirin and Coreg, discontinue lisinopril. #8 chronic systolic CHF/nonischemic cardiomyopathy: At this time, stable, compensated. Patient has been given boluses of of IV fluid. Continue Coreg, discontinue lisinopril, monitor to avoid volume overload. #9 history of prostate cancer: Status post radiation therapy as well as hormonal therapy, not on active medication at this time. He does have metastatic disease. #10 CODE STATUS: DNR CC. Confirmed with the patient's son who is the power of associate attorney as well as patient's daughter. #11 DVT prophylaxis: SCDs. This note was generated with [employer] dictation software. It may contain incorrect words, spelling, and punctuation that were not noted in checking the note before signing.
--- NOTE | 2018-03-18 13:01 | CT_ITS ---
STUDY: CT ABDOMEN AND PELVIS WITHOUT CONTRAST REASON FOR EXAM: Male, 78 years old. Pleural effusion. Metastatic prostate cancer. RADIATION DOSAGE (If Supplied By Facility): CTDIvol = ( 20.62 ) mGy, DLP = ( 1163.12 ) mGycm TECHNIQUE: Transaxial images were obtained from the dome of the diaphragm to the symphysis pubis without oral contrast, and without intravenous contrast. Sagittal and coronal images were reconstructed. Individualized dose optimization techniques were used for this CT. COMPARISON: None. FINDINGS: Evaluation of the abdominal viscera is limited in the absence of intravenous contrast. Additionally, patient motion and streak artifact due to the patient's arms being at the sites further limits evaluation. There is a moderate left pleural effusion and large right pleural effusion with overlying atelectasis. There are coronary artery calcifications noted. There is visualization of the intraventricular septum of the heart which suggests anemia. There are no calcified gallstones present. The liver demonstrates an unremarkable unenhanced appearance. The spleen is normal in size. The pancreas demonstrates an unremarkable unenhanced appearance. The adrenal glands are within normal limits. There are punctate nonobstructing bilateral renal collecting system stones. There is moderate left hydroureteronephrosis with no cause identified on this study. There are ureteral stones. There is no right hydronephrosis. There are bilateral renal cysts. Normal visualized stomach. There is no bowel obstruction or inflammation. The appendix is not visualized, but there are no findings to suggest acute appendicitis. The aorta is normal in caliber. There are atherosclerotic calcifications noted in the aorta and its branches. There is a small amount of free fluid. There is no free air, fluid collection or lymphadenopathy. There are sclerotic lesions throughout the visualized osseous structures, consistent with metastatic disease. There is a fracture of the right femoral neck. CT/Abdomen/Pelvis without Cont IMPRESSION: Limited study. Moderate left pleural effusion and large right pleural effusion with overlying atelectasis. No bowel obstruction or inflammation. Punctate bilateral nonobstructing renal collecting system stones. No ureteral stones. No right hydronephrosis. Moderate left hydroureteronephrosis with no cause identified on this study. Small amount of ascites. Diffuse osseous metastasis. Right femoral neck fracture. Atherosclerosis and coronary artery disease. Finding suggesting anemia. Electronically Signed: Piotr Pelletier, at 15:43 EST Tel , Service support ,
--- NOTE | 2018-03-18 13:01 | CT_ITS ---
STUDY: CT CHEST WITHOUT CONTRAST REASON FOR EXAM: Male, 78 years old. Pleural effusion, bone metastases, history of prostate cancer 10 years ago RADIATION DOSAGE (If Supplied By Facility): CTDIvol = ( 21.46 ) mGy, DLP = ( 884.46 ) mGycm TECHNIQUE: Transaxial imaging of the chest was performed without intravenous contrast material. Sagittal and coronal reconstructions were performed. Individualized dose optimization techniques were used for this CT. COMPARISON: Chest radiographs from the same day FINDINGS: Lines and tubes: None. Airways: Probable minimal debris in the trachea. Lungs: Minimal biapical scarring. Increased interstitial markings bilaterally. Dense opacity throughout the right lower lobe with minimal air bronchograms. Dense opacity in the posterior segment of the left lower lobe. 4 mm opacity in the anterior segment of the left lower lobe adjacent to the fissure. Few calcified granulomas bilaterally. Pleura: Marked fluid in the right pleural margin and moderate fluid in the left pleural margin. Mediastinum: Scattered prominent lymph nodes measuring up to 1.7 cm in the prevascular space and 1.7 cm in the subcarinal space. Cheryl: Prominent bilaterally. Cardiac: Normal size heart. Scattered coronary artery calcifications. Minimal fluid in the pericardial space. Vascular: Aorta: Moderate vascular calcifications. Pulmonary arteries: Unremarkable. Arterial: Scattered calcifications. Venous: Unremarkable. Soft tissues: Diffuse anasarca. Bilateral gynecomastia. Bones: Markedly heterogeneous throughout. Marked degenerative changes in the visualized spine. Upper abdomen: Dictated separately. CT/Chest without Contrast IMPRESSION: The visualized bones are diffusely heterogeneous consistent with widespread osseous metastatic disease. Given the history of prostate cancer, this is likely secondary to prostate carcinoma. There is a large right pleural effusion and a moderate left pleural effusion. There is dense atelectasis with near complete collapse of the right lower lobe. There is dense atelectasis in the posterior aspect of the left lower lobe. There are mild fibrotic changes in the remaining visualized lungs. A 4 mm opacity in the anterior segment of the left lower lobe cannot be further characterized but may represent a noncalcified granuloma since there are scattered calcified granulomas bilaterally. There is lymphadenopathy in the mediastinum and likely in both cheryl, although lymph nodes in the hilar regions cannot be measured without contrast in the adjacent vessels. Electronically Signed: Monse Gutierrez MD at 15:46 EST Tel Direct: [phone], Service support ,
[2018-03-18] MEDS: Morphine 2 MG/ML Syringe IV ×3 (13:43→18:31)
[2018-03-18] MEDS: HYDROmorphone 0.5 MG/0.5 ML SYRINGE IV (18:59)
[2018-03-18] MEDS: HYDROmorphone 1 MG/ML Syringe IV ×2 (20:53→23:49)
[2018-03-18] MEDS: Mirtazapine 15 MG Tablet PO (22:35)
[2018-03-18] MEDS: Senna/Docusate Sodium 1 Tablet 2 TABLET PO (22:35)
[2018-03-18 23:52] LABS: Hematocrit 32.7 % (40-54); Hemoglobin 10.3 g/dl (13.0-16.5)
[2018-03-19 03:15] VITALS: BP 87/50; PULSE 113; RESP 16; TEMP 38.1; O2SAT 94
[2018-03-19 04:15] VITALS: BP 84/56; PULSE 110; RESP 18; TEMP 38.1; O2SAT 93
--- NOTE | 2018-03-19 04:48 | PCM.PN.BLA ---
Progress Note Nursing team called patient after receiving blood had a temperature of 100.5. With blood pressure of 87/50. And with bladder scan positive for urine of 500 MLS. Order to straight cath patient. We will give normal saline 500 MLS bolus. Remarkably patient has a history of CHF. Patient was admitted for fracture of right femur. And family is considering hospice. At this time because of hypotension and fever suspect bacterial infection secondary to blood administration. Will give patient broad-spectrum antibiotics of vancomycin and Zosyn. Will order lactic acid. We will get a urine culture and blood culture.
[2018-03-19 06:00] VITALS: BP 92/50; PULSE 79; RESP 18; TEMP 37.9; O2SAT 93
[2018-03-19] MEDS: Piperacil/Tazobactam 3.375 GM/50 ML ML IV (06:04)
[2018-03-19] MEDS: Vancomycin IV 1,000 MG/200 ML BAG 200 MG IV (06:04)
--- NOTE | 2018-03-19 06:19 | PCM.RX.CS ---
Consult Pharmacy has been consulted to manage selected antiobiotic: Vancomycin Type of Consult: New start Suspected Infection: Bacteremia Prior Doses of Antibiotics Received/Current Regimen: Medications Vancomycin HCl (Vancomycin) 1,000 mg in 200 mls @ 200 mls/hr IV Q12H SUSAN Discontinued Medications Vancomycin HCl (Vancomycin) 1,000 mg in 200 mls @ 200 mls/hr IV X1 ONE Stop: 03/19/18 05:59 Last Admin: 03/19/18 06:04 Dose: 200 mls/hr Labs: Sodium 140 mmol/L (136-145) 03/18/18 04:30 Potassium 4.4 mmol/L (3.5-5.1) 03/18/18 04:30 Chloride 108 mmol/L (98-107) H 03/18/18 04:30 Carbon Dioxide 21.0 mmol/L (21.0-32.0) 03/18/18 04:30 Anion Gap 11 (5-15) 03/18/18 04:30 BUN 32 mg/dL (7-18) H 03/18/18 04:30 Creatinine 0.87 mg/dL (0.70-1.30) 03/18/18 04:30 Est GFR (MDRD) Af Amer 109 mL/min (>60) 03/18/18 04:30 Est GFR (MDRD) Non-Af 90 mL/min (>60) 03/18/18 04:30 BUN/Creatinine Ratio 36.7 RATIO (10-20) H 03/18/18 04:30 Glucose 78 mg/dL (74-106) 03/18/18 04:30 Weight used for dosin.3 kg Estimated Creatinine Clearance: 75 Goal Trough: 15-20 mcg/mL Pharmacy Plan for Drug Dosing: Pharmacy Service will continue to monitor and adjust dosing as required. Follow-Up Labs: Trough Vancomycin Labs to be done on [date and time ordered]: 03/20/18 @0489
[2018-03-19 06:33] LABS: Absolute Lymphocyte Count 0.53 X10^3/ul (0.83-4.51); Basophil# 0.01 X10^3/uL; Basophil% 0.2 % (0-1); Eosinophil# 0.14 X10^3/uL; Eosinophils% 2.7 % (0-5); Hematocrit 28.7 % (40-54); Lymphocyte # 0.53 X10^3/ul (4.0); Lymphocyte % 10.4 % (19-41); Mean Corp Hgb Conc 31.4 g/gl (32-36); Mean Corpuscular Hgb 28.6 pg (27.0-32.0); Mean Corpuscular Volume 91.1 fL (80-94); Mean Platelet Vol. 8.1 fl (6.2-12.0); Monocyte# 0.42 X10^3/uL; Monocyte% 8.2 % (0-10); Neutrophil # 3.97 X10^3/uL (2.7-7.7); Neutrophil % 77.9 % (47-70); Platelet Count 155 K/mm3 (150-450); RBC Distribution Width CV 19.4 % (11.6-14.6); RBC Distribution Width SD 62.7 fl (35.1-43.9); Red Blood Count 3.15 M/mm3 (4.6-6.2); White Blood Count 5.1 K/mm3 (4.4-11.0)
[2018-03-19 06:35] LABS: Differential Indicated SCAN CRITERIA MET; Lactic Acid 0.8 mmol/L (0.4-2.0); POSITIVE COUNT NO; POSITIVE DIFFERENTIAL YES; POSITIVE MORPHOLOGY NO
[2018-03-19 06:53] LABS: Anion Gap 12 (5-15); BUN 28 mg/dL (7-18); BUN/Creat Ratio 31.8 RATIO (10-20); Chloride 111 mmol/L (98-107); Creatinine, Serum 0.88 mg/dL (0.70-1.30); EST Glomerular Filtration Rate 89 mL/min (>60); Est Glom Filt Rate - Afr Amer 108 mL/min (>60); Estimated Creatinine Clearance 69.77 ml/min; Glucose 62 mg/dL (74-106); Potassium 4.1 mmol/L (3.5-5.1); Sodium Level 142 mmol/L (136-145)
[2018-03-19 07:27] VITALS: O2SAT 89
--- NOTE | 2018-03-19 09:42 | PN.ORTHO_ITS ---
Patient Problems: Active and Suspected Problems Femur fracture, right (Acute) Subjective: Patient resting comfortably with family at bedside. - Physical Exam General: No apparent distress Extremities: No clubbing, No cyanosis, Capillary Refill Less than 3 Seconds, Te nderness - right hip Vital Signs Temp Pulse Resp BP Pulse Ox 100.3 F H 79 18 92/50 L 89 03/19/18 06:00 03/19/18 06:00 03/19/18 06:00 03/19/18 06:00 03/19/18 07:27 Oxygen Flow Rate (L/min) 2 Oxygen Delivery Method Nasal Cannula Weight: 157 lb 3.033 oz Body Mass Index (BMI) 21.9 Finger Stick Blood Glucose 81 Intake and Output for Last 24 Hours 03/17/18 03/18/18 03/19/18 23:59 23:59 23:59 Intake Total 1840 / 1840 270 / 270 Output Total 700 / 700 100 / 100 Balance 1140 / 1140 170 / 170 Laboratory Tests Past 24 Hrs 03/18/18 03/18/18 03/19/18 07:00 23:44 05:28 WBC 5.1 RBC 3.15 L Hgb 10.3 L 9.0 L Hct 32.7 L 28.7 L MCV 91.1 MCH 28.6 MCHC 31.4 L RDW 19.4 H RDW Differential 62.7 H Plt Count 155 MPV 8.1 Immature Gran % (Auto) 0.600 Neut % (Auto) 77.9 H Lymph % (Auto) 10.4 L [place] % (Auto) 8.2 Eos % (Auto) 2.7 Baso % (Auto) 0.2 Absolute Neuts (auto) 4.0 Absolute Lymphs (auto) 0.53 L Total Counted Not Reportable Differential Comment Sodium Potassium Chloride Carbon Dioxide Anion Gap BUN Creatinine Estim Creat Clear Calc Est GFR (MDRD) Af Amer Est GFR (MDRD) Non-Af BUN/Creatinine Ratio Glucose Lactic Acid Calcium Blood Type A POSITIVE Antibody Screen NEGATIVE Crossmatch See Detail 03/19/18 03/19/18 05:28 05:28 WBC RBC Hgb Hct MCV MCH MCHC RDW RDW Differential Plt Count MPV Immature Gran % (Auto) Neut % (Auto) Lymph % (Auto) [place] % (Auto) Eos % (Auto) Baso % (Auto) Absolute Neuts (auto) Absolute Lymphs (auto) Total Counted Differential Comment Sodium 142 Potassium 4.1 Chloride 111 H Carbon Dioxide 19.0 L Anion Gap 12 BUN 28 H Creatinine 0.88 Estim Creat Clear Calc 69.77 Est GFR (MDRD) Af Amer 108 Est GFR (MDRD) Non-Af 89 BUN/Creatinine Ratio 31.8 H Glucose 62 L Lactic Acid 0.8 Calcium 8.0 L Blood Type Antibody Screen Crossmatch Medical Necessity - Tobacco Use Smoking Status: Current some day smoker Tobacco Use: Cigars Assessment/Plan All Active Problems Femur fracture, right (Acute) Pathologic fx right subcapital femur -- probable primary is prostate cancer Pancytopenia Pulmonary infiltrate Pyrexia Case discussed with family and Dr Briseno. The family has opted for hospice/palliative care without surgery. I agree. Will re-evaluate at request of hospitalist.
--- NOTE | 2018-03-19 10:13 | PCM.CONS.GEN ---
Problem List (1) Pleural effusion, malignant Status: Acute (2) Congestive heart failure (CHF) Status: Inactive (3) Coronary artery disease Status: Inactive (4) Femur fracture, right Status: Acute Qualifiers: Encounter type: initial encounter Fracture type: closed (5) History of allergy Status: Chronic (6) Benign essential hypertension Status: Chronic Reason for Consult Date of Consultation: 03/19/18 Reason for Consultation: Abnormal chest x-ray History of Present Illness: The patient is a 78 year old M, with past medical history listed below, who presented to [facility] on 03/18/2018 secondary to right hip injury. Patient reportedly suffered a fall at the senior living and had been complaining of right hip pain. Patient has a long history of prostate cancer and is reportedly only alert and oriented x1 at baseline. In the ER, patient was noted to have a right hip fracture and a hemoglobin of 5. Patient was originally DNR Comfort [facility], but there was some concern the patient would need stabilization of the hip her family request. While on the floor, chest x-ray was obtained showing complete whiteout of the right lung. A pulmonary consultation was obtained, along with a CT scan of the chest. Review of the CT scan shows multiple probable metastatic findings. At the bedside, patient's son was available for conversation. Patient was unable to provide much history, but did appear comfortable while lying in bed. Patient's sister was also present. Family had discussed that they would want him just to be comfortable. Patient has been on 3 L nasal cannula. The impression is is that he is not uncomfortable at this time, but can have significant pain with any movement. Review of systems unable to be obtained from the patient. Family reports patient has pain from the hip fracture, but otherwise appears to be himself. Past Medical History Past Medical History (Chronic Problems): Chronic Problems History of allergy (Chronic) Benign essential hypertension (Chronic) Allergies No Known Allergies Allergy (Verified 03/18/18 02:06) Home Medications: Ambulatory Orders Medication Instructions Recorded Aspirin [Aspirin, Baby] 81 mg PO DAILY@0800 10/04/17 Carvedilol [Coreg] 3.125 mg PO BID 10/04/17 Lisinopril [Zestril] 2.5 mg PO DAILY 10/04/17 Omeprazole [Prilosec] 20 mg PO DAILY 10/04/17 ALPRAZolam [Xanax] 0.5 mg PO TID PRN PRN 03/18/18 Acetaminophen 650 mg RC Q4H PRN PRN 03/18/18 Ammonium Lactate 1 applicatio BID 03/18/18 Atropine [Atropisol] 4 drop PO Q4H PRN PRN 03/18/18 Biotene PO TID 03/18/18 Ferrous Sulfate 325 mg PO 03/18/18 Inulin/Chromium Picolinate [Fiber 1 tablet DAILY 03/18/18 Gummies] Lidocaine [Lidoderm Patch] 1 patch TOPICAL DAILY 03/18/18 Magnesium Hydroxide [Milk Of 30 ml PO DAILY PRN PRN 03/18/18 Magnesia] Mirtazapine 15 mg PO QHS 03/18/18 Morphine Sulfate 5 mg PO Q2H PRN PRN 03/18/18 Multivitamin with Minerals 1 each PO 03/18/18 [Multiple Vitamin] Nitroglycerin 0.4 mg SL 03/18/18 Peg 400/Hypromellose/Glycerin 2 drop RIGHT EYE Q2H PRN PRN 03/18/18 [Artificial Tears] Triamcinolone 0.1% Cream [Kenalog] 1 applic TOPICAL 4X/DAY 03/18/18 traMADol [Ultram] 50 mg PO BID 03/18/18 traMADol [Ultram] 50 mg PO Q4H PRN PRN 03/18/18 Surgical History: appendectomy Lives: [facility] Smoking Status: Current some day smoker Tobacco Use: Cigars Alcohol: Occasional - *Family History Maternal History Items: - - Patient denied any family history of hypertension, heart disease, diabetes or any medical condition. Paternal History Items: - - Patient denied any family history of hypertension, heart disease, diabetes or any medical condition. Review of Systems Unable to obtain accurate/complete ROS d/t: See HPI Patient Problems: Active and Suspected Problems Femur fracture, right (Acute) Pleural effusion, malignant (Acute) Objective: All imaging was personally reviewed. CT scan of the chest was noted to have multiple findings consistent with metastatic disease, bilateral pleural effusions, right greater than left and some compressive atelectasis. - Physical Exam General: Confused, Disoriented, Non-Cooperative, - - Appears older than stated age. No accessory muscle use noted. HEENT: Atraumatic, PERRLA, EOMI, Normocephalic, - - Temporal wasting noted. Oral: No Gingival or Mucosal Lesions/ Ulcerations, Dry Mucosa Neck: Supple, No JVD, No Nodes, Trachea Midline Lungs: No rhonchi, No rales, Diminished - Right greater than left Cardiovascular: Normal S1, Normal S2, No murmurs, Tachycardic Abdomen: Bowel Sounds Present, Soft, Non Tender, Non-Distended Extremities: No clubbing, No cyanosis, Capillary Refill Less than 3 Seconds, Edema Skin: - - Ecchymosis noted over the right hip Musculoskeletal: Tenderness - Palpation of right hip Lymphatic: No Cervical, Supraclavicular, or Inguinal Adenopathy Neurological: Neuro grossly intact Psych/Mental Status: Flat Affect Vital Signs Temp Pulse Resp BP Pulse Ox 37.9 C H 79 18 92/50 L 89 03/19/18 06:00 03/19/18 06:00 03/19/18 06:00 03/19/18 06:00 03/19/18 07:27 Oxygen Flow Rate (L/min) 2 Oxygen Delivery Method Nasal Cannula Weight: 71.3 kg Body Mass Index (BMI) 21.9 Finger Stick Blood Glucose 81 Intake and Output for Last 24 Hours 03/17/18 03/18/18 03/19/18 23:59 23:59 23:59 Intake Total 1840 / 1840 270 / 270 Output Total 700 / 700 100 / 100 Balance 1140 / 1140 170 / 170 Laboratory Tests Past 24 Hrs 03/18/18 03/18/18 03/19/18 07:00 23:44 05:28 WBC 5.1 RBC 3.15 L Hgb 10.3 L 9.0 L Hct 32.7 L 28.7 L MCV 91.1 MCH 28.6 MCHC 31.4 L RDW 19.4 H RDW Differential 62.7 H Plt Count 155 MPV 8.1 Immature Gran % (Auto) 0.600 Neut % (Auto) 77.9 H Lymph % (Auto) 10.4 L [place] % (Auto) 8.2 Eos % (Auto) 2.7 Baso % (Auto) 0.2 Absolute Neuts (auto) 4.0 Absolute Lymphs (auto) 0.53 L Total Counted Not Reportable Differential Comment Sodium Potassium Chloride Carbon Dioxide Anion Gap BUN Creatinine Estim Creat Clear Calc Est GFR (MDRD) Af Amer Est GFR (MDRD) Non-Af BUN/Creatinine Ratio Glucose Lactic Acid Calcium Blood Type A POSITIVE Antibody Screen NEGATIVE Crossmatch See Detail 03/19/18 03/19/18 05:28 05:28 WBC RBC Hgb Hct MCV MCH MCHC RDW RDW Differential Plt Count MPV Immature Gran % (Auto) Neut % (Auto) Lymph % (Auto) [place] % (Auto) Eos % (Auto) Baso % (Auto) Absolute Neuts (auto) Absolute Lymphs (auto) Total Counted Differential Comment Sodium 142 Potassium 4.1 Chloride 111 H Carbon Dioxide 19.0 L Anion Gap 12 BUN 28 H Creatinine 0.88 Estim Creat Clear Calc 69.77 Est GFR (MDRD) Af Amer 108 Est GFR (MDRD) Non-Af 89 BUN/Creatinine Ratio 31.8 H Glucose 62 L Lactic Acid 0.8 Calcium 8.0 L Blood Type Antibody Screen Crossmatch Clinical Impression(s) from Imaging Studies Lower Extremity CT 03/18/18 08:40 IMPRESSION: Right femoral neck fracture. Widespread osseous metastatic disease. Electronically Signed: Jacques Greenfield MD at 10:30 EST , Service support , Abdomen/Pelvis CT 03/18/18 13:01 IMPRESSION: Limited study. Moderate left pleural effusion and large right pleural effusion with overlying atelectasis. No bowel obstruction or inflammation. Punctate bilateral nonobstructing renal collecting system stones. No ureteral stones. No right hydronephrosis. Moderate left hydroureteronephrosis with no cause identified on this study. Small amount of ascites. Diffuse osseous metastasis. Right femoral neck fracture. Atherosclerosis and coronary artery disease. Finding suggesting anemia. Electronically Signed: Piotr Pelletier, at 15:43 EST Tel , Service support , Chest CT 03/18/18 13:01 IMPRESSION: The visualized bones are diffusely heterogeneous consistent with widespread osseous metastatic disease. Given the history of prostate cancer, this is likely secondary to prostate carcinoma. There is a large right pleural effusion and a moderate left pleural effusion. There is dense atelectasis with near complete collapse of the right lower lobe. There is dense atelectasis in the posterior aspect of the left lower lobe. There are mild fibrotic changes in the remaining visualized lungs. A 4 mm opacity in the anterior segment of the left lower lobe cannot be further characterized but may represent a noncalcified granuloma since there are scattered calcified granulomas bilaterally. There is lymphadenopathy in the mediastinum and likely in both radha, although lymph nodes in the hilar regions cannot be measured without contrast in the adjacent vessels. Electronically Signed: Monse Gutierrez MD at 15:46 EST Tel Direct: [phone], Service support , Assessment/Plan All Active Problems Femur fracture, right (Acute) Pleural effusion, malignant (Acute) RECOMMENDATIONS: 1. Hospice measures 2. No thoracentesis IMPRESSIONS: 1. Probable bilateral malignant pleural effusions CT scan of the chest shows bilateral pleural effusions with multiple findings consistent with metastatic disease such as bone lesions, mediastinal lymphadenopathy and airway collapse/atelectasis. Frankly discussed with the family about the risks, benefits and alternatives of various approaches. A thoracentesis could be obtained for comfort, but patient appears to be comfortable on 3 L nasal cannula. They understand that this would likely be a temporizing measure, but given the information, they believe palliative measures are more appropriate. Until directed otherwise, anticipate no thoracentesis today. Please call if change in goals of therapy. 2. Right hip fracture status post fall/hypertension/CAD/chronic systolic CHF/metastatic prostate cancer/advanced age Complicates care, management, recovery and prognosis. Patient's POA is reporting comfort measures most appropriate at this time. This appears to be reasonable given medical status. Poor long-term prognosis. Code Visit Inpatient E&M: 69663 Init Hosp L2
--- NOTE | 2018-03-19 10:18 | CON.PCM_ITS ---
Problem List (1) Pleural effusion, malignant Status: Acute (2) Congestive heart failure (CHF) Status: Inactive (3) Coronary artery disease Status: Inactive (4) Femur fracture, right Status: Acute Qualifiers: Encounter type: initial encounter Fracture type: closed (5) History of allergy Status: Chronic (6) Benign essential hypertension Status: Chronic Reason for Consult Date of Consultation: 03/19/18 Reason for Consultation: Abnormal chest x-ray History of Present Illness: The patient is a 78 year old M, with past medical history listed below, who presented to [facility] on 03/18/2018 secondary to right hip injury. Patient reportedly suffered a fall at the group home and had been complaining of right hip pain. Patient has a long history of prostate cancer and is reportedly only alert and oriented x1 at baseline. In the ER, patient was noted to have a right hip fracture and a hemoglobin of 5. Patient was originally DNR [facility], but there was some concern the patient would need stabilization of the hip her family request. While on the floor, chest x-ray was obtained showing complete whiteout of the right lung. A pulmonary consultation was obtained, along with a CT scan of the chest. Review of the CT scan shows multiple probable metastatic findings. At the bedside, patient's son was available for conversation. Patient was unable to provide much history, but did appear comfortable while lying in bed. Patient's sister was also present. Family had discussed that they would want him just to be comfortable. Patient has been on 3 L nasal cannula. The impression is is that he is not uncomfortable at this time, but can have significant pain with any movement. Review of systems unable to be obtained from the patient. Family reports patient has pain from the hip fracture, but otherwise appears to be himself. Past Medical History Past Medical History (Chronic Problems): Chronic Problems History of allergy (Chronic) Benign essential hypertension (Chronic) Allergies No Known Allergies Allergy (Verified 03/18/18 02:06) Home Medications: Ambulatory Orders Medication Instructions Recorded Aspirin [Aspirin, Baby] 81 mg PO DAILY@0800 10/04/17 Carvedilol [Coreg] 3.125 mg PO BID 10/04/17 Lisinopril [Zestril] 2.5 mg PO DAILY 10/04/17 Omeprazole [Prilosec] 20 mg PO DAILY 10/04/17 ALPRAZolam [Xanax] 0.5 mg PO TID PRN PRN 03/18/18 Acetaminophen 650 mg RC Q4H PRN PRN 03/18/18 Ammonium Lactate 1 applicatio BID 03/18/18 Atropine [Atropisol] 4 drop PO Q4H PRN PRN 03/18/18 Biotene PO TID 03/18/18 Ferrous Sulfate 325 mg PO 03/18/18 Inulin/Chromium Picolinate [Fiber 1 tablet DAILY 03/18/18 Gummies] Lidocaine [Lidoderm Patch] 1 patch TOPICAL DAILY 03/18/18 Magnesium Hydroxide [Milk Of 30 ml PO DAILY PRN PRN 03/18/18 Magnesia] Mirtazapine 15 mg PO QHS 03/18/18 Morphine Sulfate 5 mg PO Q2H PRN PRN 03/18/18 Multivitamin with Minerals 1 each PO 03/18/18 [Multiple Vitamin] Nitroglycerin 0.4 mg SL 03/18/18 Peg 400/Hypromellose/Glycerin 2 drop RIGHT EYE Q2H PRN PRN 03/18/18 [Artificial Tears] Triamcinolone 0.1% Cream [Kenalog] 1 applic TOPICAL 4X/DAY 03/18/18 traMADol [Ultram] 50 mg PO BID 03/18/18 traMADol [Ultram] 50 mg PO Q4H PRN PRN 03/18/18 Surgical History: appendectomy Lives: Residential Smoking Status: Current some day smoker Tobacco Use: Cigars Alcohol: Occasional - *Family History Maternal History Items: - - Patient denied any family history of hypertension, heart disease, diabetes or any medical condition. Paternal History Items: - - Patient denied any family history of hypertension, heart disease, diabetes or any medical condition. Review of Systems Unable to obtain accurate/complete ROS d/t: See HPI Patient Problems: Active and Suspected Problems Femur fracture, right (Acute) Pleural effusion, malignant (Acute) Objective: All imaging was personally reviewed. CT scan of the chest was noted to have multiple findings consistent with metastatic disease, bilateral pleural effusions, right greater than left and some compressive atelectasis. - Physical Exam General: Confused, Disoriented, Non-Cooperative, - - Appears older than stated age. No accessory muscle use noted. HEENT: Atraumatic, PERRLA, EOMI, Normocephalic, - - Temporal wasting noted. Oral: No Gingival or Mucosal Lesions/ Ulcerations, Dry Mucosa Neck: Supple, No JVD, No Nodes, Trachea Midline Lungs: No rhonchi, No rales, Diminished - Right greater than left Cardiovascular: Normal S1, Normal S2, No murmurs, Tachycardic Abdomen: Bowel Sounds Present, Soft, Non Tender, Non-Distended Extremities: No clubbing, No cyanosis, Capillary Refill Less than 3 Seconds, Edema Skin: - - Ecchymosis noted over the right hip Musculoskeletal: Tenderness - Palpation of right hip Lymphatic: No Cervical, Supraclavicular, or Inguinal Adenopathy Neurological: Neuro grossly intact Psych/Mental Status: Flat Affect Vital Signs Temp Pulse Resp BP Pulse Ox 37.9 C H 79 18 92/50 L 89 03/19/18 06:00 03/19/18 06:00 03/19/18 06:00 03/19/18 06:00 03/19/18 07:27 Oxygen Flow Rate (L/min) 2 Oxygen Delivery Method Nasal Cannula Weight: 71.3 kg Body Mass Index (BMI) 21.9 Finger Stick Blood Glucose 81 Intake and Output for Last 24 Hours 03/17/18 03/18/18 03/19/18 23:59 23:59 23:59 Intake Total 1840 / 1840 270 / 270 Output Total 700 / 700 100 / 100 Balance 1140 / 1140 170 / 170 Laboratory Tests Past 24 Hrs 03/18/18 03/18/18 03/19/18 07:00 23:44 05:28 WBC 5.1 RBC 3.15 L Hgb 10.3 L 9.0 L Hct 32.7 L 28.7 L MCV 91.1 MCH 28.6 MCHC 31.4 L RDW 19.4 H RDW Differential 62.7 H Plt Count 155 MPV 8.1 Immature Gran % (Auto) 0.600 Neut % (Auto) 77.9 H Lymph % (Auto) 10.4 L Gove % (Auto) 8.2 Eos % (Auto) 2.7 Baso % (Auto) 0.2 Absolute Neuts (auto) 4.0 Absolute Lymphs (auto) 0.53 L Total Counted Not Reportable Differential Comment Sodium Potassium Chloride Carbon Dioxide Anion Gap BUN Creatinine Estim Creat Clear Calc Est GFR (MDRD) Af Amer Est GFR (MDRD) Non-Af BUN/Creatinine Ratio Glucose Lactic Acid Calcium Blood Type A POSITIVE Antibody Screen NEGATIVE Crossmatch See Detail 03/19/18 03/19/18 05:28 05:28 WBC RBC Hgb Hct MCV MCH MCHC RDW RDW Differential Plt Count MPV Immature Gran % (Auto) Neut % (Auto) Lymph % (Auto) Gove % (Auto) Eos % (Auto) Baso % (Auto) Absolute Neuts (auto) Absolute Lymphs (auto) Total Counted Differential Comment Sodium 142 Potassium 4.1 Chloride 111 H Carbon Dioxide 19.0 L Anion Gap 12 BUN 28 H Creatinine 0.88 Estim Creat Clear Calc 69.77 Est GFR (MDRD) Af Amer 108 Est GFR (MDRD) Non-Af 89 BUN/Creatinine Ratio 31.8 H Glucose 62 L Lactic Acid 0.8 Calcium 8.0 L Blood Type Antibody Screen Crossmatch Clinical Impression(s) from Imaging Studies Lower Extremity CT 03/18/18 08:40 IMPRESSION: Right femoral neck fracture. Widespread osseous metastatic disease. Electronically Signed: Jacques Greenfield MD at 10:30 EST , Service support , Abdomen/Pelvis CT 03/18/18 13:01 IMPRESSION: Limited study. Moderate left pleural effusion and large right pleural effusion with overlying atelectasis. No bowel obstruction or inflammation. Punctate bilateral nonobstructing renal collecting system stones. No ureteral stones. No right hydronephrosis. Moderate left hydroureteronephrosis with no cause identified on this study. Small amount of ascites. Diffuse osseous metastasis. Right femoral neck fracture. Atherosclerosis and coronary artery disease. Finding suggesting anemia. Electronically Signed: Piotr Pelletier, at 15:43 EST Tel , Service support , Chest CT 03/18/18 13:01 IMPRESSION: The visualized bones are diffusely heterogeneous consistent with widespread osseous metastatic disease. Given the history of prostate cancer, this is likely secondary to prostate carcinoma. There is a large right pleural effusion and a moderate left pleural effusion. There is dense atelectasis with near complete collapse of the right lower lobe. There is dense atelectasis in the posterior aspect of the left lower lobe. There are mild fibrotic changes in the remaining visualized lungs. A 4 mm opacity in the anterior segment of the left lower lobe cannot be further characterized but may represent a noncalcified granuloma since there are scattered calcified granulomas bilaterally. There is lymphadenopathy in the mediastinum and likely in both radha, although lymph nodes in the hilar regions cannot be measured without contrast in the adjacent vessels. Electronically Signed: Monse Gutierrez MD at 15:46 EST Tel Direct: [phone], Service support , Assessment/Plan All Active Problems Femur fracture, right (Acute) Pleural effusion, malignant (Acute) RECOMMENDATIONS: 1. Hospice measures 2. No thoracentesis IMPRESSIONS: 1. Probable bilateral malignant pleural effusions CT scan of the chest shows bilateral pleural effusions with multiple findings consistent with metastatic disease such as bone lesions, mediastinal lymphadenopathy and airway collapse/atelectasis. Frankly discussed with the family about the risks, benefits and alternatives of various approaches. A thoracentesis could be obtained for comfort, but patient appears to be comfortable on 3 L nasal cannula. They understand that this would likely be a temporizing measure, but given the information, they believe palliative measures are more appropriate. Until directed otherwise, anticipate no thoracentesis today. Please call if change in goals of therapy. 2. Right hip fracture status post fall/hypertension/CAD/chronic systolic CHF/metastatic prostate cancer/advanced age Complicates care, management, recovery and prognosis. Patient's POA is reporting comfort measures most appropriate at this time. This appears to be reasonable given medical status. Poor long-term prognosis. Code Visit Inpatient E&M: 56892 Init Hosp L2
[2018-03-19 11:00] VITALS: BP 94/50; PULSE 71; RESP 18; TEMP 36.9; O2SAT 94
[2018-03-19] MEDS: Ammonium Lactate 225 gm Bottle 1 APPLIC TOPICAL (11:38)
[2018-03-19] MEDS: HYDROmorphone 0.5 MG/0.5 ML SYRINGE IV (11:39)
[2018-03-19] MEDS: Carvedilol 3.125 MG TABLET PO (11:39)
--- NOTE | 2018-03-19 12:46 | PCM.DC.SUM ---
Discharge Date and Diagnosis Date of Admission: 03/18/18 Date of Discharge: 03/19/18 - Primary Discharge Diagnosis #1 acute traumatic/pathologic right femoral neck fracture due to mechanical fall. #2 widespread metastatic disease of the bone secondary to prostate cancer. #3 acute on chronic anemia required blood transfusion. #4 large right probable malignant pleural effusion with probable right lung collapse, small left pleural effusion. - Secondary Discharge Diagnosis Chronic Problems History of allergy (Chronic) Benign essential hypertension (Chronic) Hospital Course and Treatment Imaging Results: Clinical Impression(s) from Imaging Studies Hip/Pelvis X-Ray 03/18/18 02:15 IMPRESSION: Acute fracture of the right femoral head and osteoporotic bone with heterogeneous trabecular pattern, neoplastic disease is suspected. This may be a pathologic fracture. Arteriosclerosis and degenerative changes. Electronically Signed: Mahnaz Garcia MD at 4:06 EST , Service support , Chest X-Ray 03/18/18 02:30 IMPRESSION: Interval developing of hazy airspace opacification of the right hemithorax with right pleural effusion. Underlying parenchymal pathology such as infiltrate/pneumonia or neoplastic disease may be present. Correlation to history recommended which then made be further interrogated with AP chest. Heterogeneous trabecular pattern suspicious for neoplastic disease. Electronically Signed: Mahnza Garcia MD at 4:08 EST , Service support , Lower Extremity CT 03/18/18 08:40 IMPRESSION: Right femoral neck fracture. Widespread osseous metastatic disease. Electronically Signed: Jacques Greenfield MD at 10:30 EST , Service support , Abdomen/Pelvis CT 03/18/18 13:01 IMPRESSION: Limited study. Moderate left pleural effusion and large right pleural effusion with overlying atelectasis. No bowel obstruction or inflammation. Punctate bilateral nonobstructing renal collecting system stones. No ureteral stones. No right hydronephrosis. Moderate left hydroureteronephrosis with no cause identified on this study. Small amount of ascites. Diffuse osseous metastasis. Right femoral neck fracture. Atherosclerosis and coronary artery disease. Finding suggesting anemia. Electronically Signed: Piotr Pelletier, at 15:43 EST Tel , Service support , Chest CT 03/18/18 13:01 IMPRESSION: The visualized bones are diffusely heterogeneous consistent with widespread osseous metastatic disease. Given the history of prostate cancer, this is likely secondary to prostate carcinoma. There is a large right pleural effusion and a moderate left pleural effusion. There is dense atelectasis with near complete collapse of the right lower lobe. There is dense atelectasis in the posterior aspect of the left lower lobe. There are mild fibrotic changes in the remaining visualized lungs. A 4 mm opacity in the anterior segment of the left lower lobe cannot be further characterized but may represent a noncalcified granuloma since there are scattered calcified granulomas bilaterally. There is lymphadenopathy in the mediastinum and likely in both radha, although lymph nodes in the hilar regions cannot be measured without contrast in the adjacent vessels. Electronically Signed: Monse Gutierrez MD at 15:46 EST Tel Direct: [phone], Service support , Dr. Farah, orthopedic surgery. Dr. Mondragon, pulmonology. Operations: None Procedures: None Summary of Care Provided: The patient is a 78 year old M presented to the ED from the long term because of right hip pain following a mechanical fall and he was found to have acute traumatic fracture of the right femoral neck. Patient was admitted for pain control and surgical repair of the fracture. X-ray of the right hip and pelvis revealed acute right femoral neck fracture with heterogenous trabecular pattern suspicious for metastatic disease. CT scan of the right lower extremity revealed a right femoral neck fracture with widespread bone metastatic disease. Patient had a history of prostate cancer which is recurrent, status post radiation therapy as well as hormonal therapy years ago and has not been followed up as outpatient and patient has been refusing to have blood work done or follow-up visits. Chest x-ray performed as a part of the preoperative evaluation and revealed opacification of the whole right lung due to large pleural effusion as well as possible right lung collapse and also revealed small left pleural effusion. On admission, patient was found to have acute on chronic anemia with hemoglobin of 5.3 g/dL. Patient was treated with IV fluids, blood transfusion and orthopedic surgery was consulted. Hemoglobin went up from 5.3 g/dL to 9 g (on the day of discharge. There was no evidence of active bleeding. Because of the metastatic disease and probable right lung collapse, CT scan abdomen and chest performed. CT chest and abdomen without contrast revealed large right and moderate left pleural effusion, bilateral nonobstructing kidney stones, no hydronephrosis and small amount of ascites as well as diffuse metastatic bone disease. CT scan chest without contrast revealed widespread bone metastatic disease, large right pleural effusion, moderate left pleural effusion, near complete collapse of the right lower lobe, hilar lymphadenopathy. Patient has been bedridden most of the time in the last 6 months and has been not been ambulating. Based on his age, past medical problems, functional status and serum creatinine, the patient was at high risk for perioperative myocardial infarction or cardiac arrest and based on German assessment tool, his risk was 5.52%. Pulmonology consulted as well as orthopedic surgery and after discussion with the patient's son and his sister, we are all agreed that this patient is at very high risk of intraoperative as well as postoperative complications and patient's family agreed. Hospice and palliative care consulted and patient was appropriate for inpatient hospice care. Patient transferred to inpatient hospice facility in a stable condition, plan for pain control and keep him comfortable and no plan for surgery or any further treatments. - Physical Exam General: Alert, Oriented x3, Cooperative, No apparent distress HEENT: Atraumatic, PERRLA, EOMI, Normocephalic Oral: Moist Mucosa, No Gingival or Mucosal Lesions/ Ulcerations Neck: Supple, No JVD, Negative Carotid Bruits, Trachea Midline, Thyroid Normal Size and Texture Lungs: No wheeze, No rales, Diminished, - - Absent breath sounds on the right base, dull percussion noted, diminished breath sounds in both sides. Cardiovascular: Regular rate, Regular Rhythm, Normal S1, Normal S2, PMI Normal Abdomen: Bowel Sounds Present, Soft, Non Tender, Non-Distended, No Hepato-splenomegaly Extremities: No clubbing, No cyanosis, No edema Skin: No rashes, No breakdown Lymphatic: No Cervical, Supraclavicular, or Inguinal Adenopathy Neurological: Cranial nerves II-XII grossly intact, Neuro grossly intact Psych/Mental Status: Normal Affect, Appropriate, Alert and oriented to time, place, person, mood and affect Vital Signs Temp Pulse Resp BP Pulse Ox 98.5 F 71 18 94/50 L 94 03/19/18 11:00 03/19/18 11:00 03/19/18 11:00 03/19/18 11:00 03/19/18 11:00 Oxygen Flow Rate (L/min) 2 Oxygen Delivery Method Nasal Cannula Weight: 157 lb 3.033 oz Body Mass Index (BMI) 21.9 Finger Stick Blood Glucose 81 Intake and Output for Last 24 Hours 03/17/18 03/18/18 03/19/18 23:59 23:59 23:59 Intake Total 1840 / 1840 270 / 270 Output Total 700 / 700 100 / 100 Balance 1140 / 1140 170 / 170 Laboratory Tests Past 24 Hrs 03/18/18 03/18/18 03/19/18 07:00 23:44 05:28 WBC 5.1 RBC 3.15 L Hgb 10.3 L 9.0 L Hct 32.7 L 28.7 L MCV 91.1 MCH 28.6 MCHC 31.4 L RDW 19.4 H RDW Differential 62.7 H Plt Count 155 MPV 8.1 Immature Gran % (Auto) 0.600 Neut % (Auto) 77.9 H Lymph % (Auto) 10.4 L Nash % (Auto) 8.2 Eos % (Auto) 2.7 Baso % (Auto) 0.2 Absolute Neuts (auto) 4.0 Absolute Lymphs (auto) 0.53 L Total Counted Not Reportable Differential Comment Sodium Potassium Chloride Carbon Dioxide Anion Gap BUN Creatinine Estim Creat Clear Calc Est GFR (MDRD) Af Amer Est GFR (MDRD) Non-Af BUN/Creatinine Ratio Glucose Lactic Acid Calcium Blood Type A POSITIVE Antibody Screen NEGATIVE Crossmatch See Detail 03/19/18 03/19/18 05:28 05:28 WBC RBC Hgb Hct MCV MCH MCHC RDW RDW Differential Plt Count MPV Immature Gran % (Auto) Neut % (Auto) Lymph % (Auto) Nash % (Auto) Eos % (Auto) Baso % (Auto) Absolute Neuts (auto) Absolute Lymphs (auto) Total Counted Differential Comment Sodium 142 Potassium 4.1 Chloride 111 H Carbon Dioxide 19.0 L Anion Gap 12 BUN 28 H Creatinine 0.88 Estim Creat Clear Calc 69.77 Est GFR (MDRD) Af Amer 108 Est GFR (MDRD) Non-Af 89 BUN/Creatinine Ratio 31.8 H Glucose 62 L Lactic Acid 0.8 Calcium 8.0 L Blood Type Antibody Screen Crossmatch Home Medications: Medications to take at Discharge Aspirin [Aspirin, Baby] 81 mg PO DAILY@0800 10/04/17 Carvedilol [Coreg] 3.125 mg PO BID 10/04/17 Lisinopril [Zestril] 2.5 mg PO DAILY 10/04/17 Omeprazole [Prilosec] 20 mg PO DAILY 10/04/17 ALPRAZolam [Xanax] 0.5 mg PO TID PRN PRN 03/18/18 Acetaminophen 650 mg RC Q4H PRN PRN 03/18/18 Ammonium Lactate 1 applicatio BID 03/18/18 Atropine [Atropisol] 4 drop PO Q4H PRN PRN 03/18/18 Biotene PO TID 03/18/18 Ferrous Sulfate 325 mg PO 03/18/18 Inulin/Chromium Picolinate [Fiber Gummies] 1 tablet DAILY 03/18/18 Lidocaine [Lidoderm Patch] 1 patch TOPICAL DAILY 03/18/18 Magnesium Hydroxide [Milk Of Magnesia] 30 ml PO DAILY PRN PRN 03/18/18 Mirtazapine 15 mg PO QHS 03/18/18 Morphine Sulfate 5 mg PO Q2H PRN PRN 03/18/18 Multivitamin with Minerals [Multiple Vitamin] 1 each PO 03/18/18 Nitroglycerin 0.4 mg SL 03/18/18 Peg 400/Hypromellose/Glycerin [Artificial Tears] 2 drop RIGHT EYE Q2H PRN PRN 03/18/18 Triamcinolone 0.1% Cream [Kenalog] 1 applic TOPICAL 4X/DAY 03/18/18 traMADol [Ultram] 50 mg PO BID 03/18/18 traMADol [Ultram] 50 mg PO Q4H PRN PRN 03/18/18 Primary Care Physician: Andrew Verduzco MD [Primary Care Provider] - Disposition: Hospice Medical Facility Minutes spent on discharge:: 36 Patient Condition:: Guarded Medical Necessity - Tobacco Use Smoking Status: Current some day smoker Tobacco Use: Cigars Meaningful Use Info Meaningful Use Diagnoses (Choose all that apply): None applicable Code Visit Inpatient E&M: 55891 Disch Hosp
[2018-03-20 09:37] LABS: Vitamin B12 929 pg/mL (211-911)
[2018-03-20 09:47] LABS: Haptoglobin 398 mg/dL (34-200)
[2018-03-20 14:46] LABS: Pathologist Review Reviewed
== END 2018-03-19 12:33 | disposition hospice, inpatient (51) | DRG 536 ==
LOC: ED 03:02 → MS3 03:51
PROVIDERS: Admitting Provider Hospitalist; Emergency Provider Emergency Medicine; Family Provider Family Medicine; PCP Family Medicine; Visit Provider Hospitalist
DX: S72.001A Fracture of unspecified part of neck of right femur, initial encounter for closed fracture (principal); I50.22 Chronic systolic (congestive) heart failure; C79.51 Secondary malignant neoplasm of bone; J91.0 Malignant pleural effusion; J98.19 Other pulmonary collapse; J90 Pleural effusion, not elsewhere classified; I11.0 Hypertensive heart disease with heart failure; I25.10 Atherosclerotic heart disease of native coronary artery without angina pectoris; D64.9 Anemia, unspecified; G31.84 Mild cognitive impairment of uncertain or unknown etiology; Z66 Do not resuscitate; C61 Malignant neoplasm of prostate; Z51.5 Encounter for palliative care; W06.XXXA Fall from bed, initial encounter; Y92.122 Bedroom in nursing home as the place of occurrence of the external cause; Z92.3 Personal history of irradiation
CPT/HCPCS: 36415; 71045; 71250; 73502; 73700; 74176; 80048; 82607; 82728; 82746; 83010; 83540; 83550; 83605; 83615; 85014; 85018; 85025; 85610; 85730; 86850; 86900; 86920; 86922; 87040; 93005; 97802; 99284; J7040; P9016